=== PATIENT | female | born 1965 | race Caucasian/White ===

== ENCOUNTER 2019-12-22 12:41 | Outpatient (REF) | payer OTHER, SELFPAY | END 2019-12-22 12:42 | disposition home or self-care (01) | LOC: HO.HMGCLDS 12:41 | PROVIDERS: PCP Nurse Practitioner Family; Visit Provider Internal Medicine | DX: Z20.828 Contact with and (suspected) exposure to other viral communicable diseases (principal) | CPT/HCPCS: 87635 ==

== ENCOUNTER 2020-01-31 10:17 | Outpatient (REF) | payer OTHER, SELFPAY ==
[2020-01-31 11:29] LABS: MANUAL DIFF FLAG NO
[2020-01-31 11:38] LABS: Basophils Percent Auto 0.3 % (0-2); Eosinophils Absolute Auto 0.1 X10*3/uL (0.0-0.4); Eosinophils Percent Auto 2.7 % (0-4); Hematocrit 44.5 % (37-47); Hemoglobin 14.9 g/dl (12.0-16.0); Lymphocytes Absolute Auto 1.1 X10*3/uL (1.2-4.9); Lymphocytes Percent Auto 32.8 % (20-40); Mean Corpuscular HGB Conc 33.5 g/dl (31.0-35.0); Mean Corpuscular Hemoglobin 30.4 pg (27.0-33.0); Mean Corpuscular Volume 90.8 fL (80-98); Mean Platelet Volume 9.4 fL (9.4-12.3); Monocytes Absolute Auto 0.3 X10*3/uL (0.1-1.2); Monocytes Percent Auto 8.2 % (2-11); Neutrophils Absolute Auto 1.8 X10*3/uL (2.0-8.3); Platelet Count 308 X10*3/uL (160-400); Red Cell Distribution Width 11.9 % (11.0-16.0); White Blood Count 3.3 X10*3/uL (4.8-10.8)
[2020-01-31 12:02] LABS: Anion Gap 12 (12-20); Blood Urea Nitrogen 14 mg/dL (9-16); Calcium 9.3 mg/dL (8.4-10.2); Carbon Dioxide 28 mmol/L (22-29); Chloride 106 mmol/L (96-108); Cholesterol 202 mg/dL; Estimated Glomerular Filt Rate > 60; Glucose Fasting 92 mg/dL (60-99); HDL Cholesterol 91 mg/dL; LDL Cholesterol Calculated 101 mg/dl; Potassium 4.6 mmol/l (3.3-5.1); Sodium 141 mmol/L (135-145); Triglycerides 53 mg/dL
[2020-01-31 12:20] LABS: TSH reflex Free T4 1.15 mIU/mL (0.32-4.0)
== END 2020-01-31 10:18 | disposition home or self-care (01) ==
LOC: HO.LAB 10:17
PROVIDERS: PCP Nurse Practitioner Family; Visit Provider Nurse Practitioner Family
DX: Z00.00 Encounter for general adult medical examination without abnormal findings (principal); Z13.220 Encounter for screening for lipoid disorders; Z13.29 Encounter for screening for other suspected endocrine disorder
CPT/HCPCS: 36415; 80048; 80061; 84443; 85025

== ENCOUNTER 2020-03-02 15:29 | Outpatient (REF) | payer OTHER, SELFPAY ==
[2020-03-04 12:02] LABS: BV Int Neg Control Negative (Negative); BV Int Pos Control Positive (Positive)
[2020-03-07 03:48] LABS: HPV mRNA E6/E7 rflx Not Detected (Not Detected)
== END 2020-03-02 15:30 | disposition home or self-care (01) ==
LOC: HO.LAB 15:29
PROVIDERS: PCP Nurse Practitioner Family; Referring Provider Nurse Practitioner Family; Visit Provider Obstetrics & Gynecology
DX: Z12.4 Encounter for screening for malignant neoplasm of cervix (principal)
CPT/HCPCS: 87480; 87510; 87624; 87625; 87660; 88142

== ENCOUNTER 2020-03-12 10:18 | Outpatient (REF) | payer OTHER, SELFPAY ==
--- NOTE | 2020-03-12 10:22 | MM_ITS ---
EXAMINATION: MM SCREENING DIGITAL BREAST TOMOSYNTHESIS, BILATERAL CLINICAL INFORMATION: Screening. Asymptomatic. Prior ghk-by-rjkpb mammography currently unavailable. Radiology staff will attempt to retrieve prior outside exams to allow for comparison in an addendum report. The lifetime risk of breast cancer based on the Tyrer-Cuzick Model is 9%. COMPARISON: None. TECHNIQUE: Digital breast tomosynthesis is performed in both the craniocaudal and mediolateral oblique views along with computer-aided detection (CAD). Synthesized 2D images are generated from the tomosynthesis. FINDINGS: The breasts are heterogeneously dense, which may obscure small masses (ACR BI-RADS breast composition Category c). There are no significant masses, abnormal calcifications, or other abnormalities. The axilla and skin contours are unremarkable. MM/MM tomosynthesis screening BI IMPRESSION: No mammographic evidence of malignancy. ASSESSMENT: BI-RADS 1: Negative RECOMMENDATION: 1. Routine annual mammography screening. 2. Radiology department staff will attempt to retrieve prior outside mammography to allow for comparison in an addendum report. This patient's information was entered into a reminder system with a target due date for their next mammogram.
== END 2020-03-12 10:19 | disposition home or self-care (01) ==
LOC: HO.MAMMO 10:18
PROVIDERS: Visit Provider Obstetrics & Gynecology
DX: Z12.31 Encounter for screening mammogram for malignant neoplasm of breast (principal)
CPT/HCPCS: 77063; 77067

== ENCOUNTER 2020-10-16 08:46 | Outpatient (REF) | payer OTHER, SELFPAY ==
[2020-10-16 10:28] LABS: MANUAL DIFF FLAG NO
[2020-10-16 10:42] LABS: Basophils Percent Auto 0.5 % (0-2); Eosinophils Absolute Auto 0.1 X10*3/uL (0.0-0.4); Eosinophils Percent Auto 2.5 % (0-4); Hematocrit 42.5 % (37-47); Hemoglobin 14.5 g/dl (12.0-16.0); Imm Gran Abs Auto 0.01 X10*3/uL (0.00-0.03); Imm Gran Pct Auto 0.3 % (0.0-0.4); Lymphocytes Absolute Auto 1.3 X10*3/uL (1.2-4.9); Lymphocytes Percent Auto 32.2 % (20-40); Mean Corpuscular HGB Conc 34.1 g/dl (31.0-35.0); Mean Corpuscular Hemoglobin 31.1 pg (27.0-33.0); Mean Corpuscular Volume 91.2 fL (80-98); Mean Platelet Volume 9.4 fL (9.4-12.3); Monocytes Absolute Auto 0.4 X10*3/uL (0.1-1.2); Monocytes Percent Auto 9.4 % (2-11); Neutrophils Absolute Auto 2.2 X10*3/uL (2.0-8.3); Neutrophils Percent Auto 55.1 % (45-73); Platelet Count 304 X10*3/uL (160-400); Red Blood Count 4.66 X10*6/uL (4.20-5.50); Red Cell Distribution Width 12.3 % (11.0-16.0)
[2020-10-16 10:48] LABS: Alanine Aminotransferase 18 U/L (0-31); Albumin Level 4.4 g/dL (3.5-5.0); Alkaline Phosphatase 79 U/L (39-117); Anion Gap 13 (12-20); Aspartate Amino Transferase 23 U/L (5-31); Bilirubin Total 0.4 mg/dL (0.0-1.0); Blood Urea Nitrogen 14 mg/dL (9-16); Calcium 9.5 mg/dL (8.4-10.2); Carbon Dioxide 25 mmol/L (22-29); Chloride 107 mmol/L (96-108); Cholesterol 177 mg/dL; Estimated Glomerular Filt Rate > 60; Glucose Fasting 102 mg/dL (60-99); HDL Cholesterol 74 mg/dL; LDL Cholesterol Calculated 93 mg/dl; Potassium 4.7 mmol/L (3.3-5.1); Sodium 140 mmol/L (135-145); Total Protein 6.6 g/dL (6.5-8.0); Triglycerides 50 mg/dL
== END 2020-10-16 08:47 | disposition home or self-care (01) ==
LOC: HO.10HDL 08:46
PROVIDERS: Visit Provider Nurse Practitioner Family
DX: E78.00 Pure hypercholesterolemia, unspecified (principal)
CPT/HCPCS: 36415; 80053; 80061; 85025

== ENCOUNTER 2021-02-28 12:53 | Outpatient (REF) | payer OTHER, SELFPAY ==
[2021-02-28 13:51] LABS: MANUAL DIFF FLAG NO
[2021-02-28 13:59] LABS: Basophils Percent Auto 0.8 % (0-2); Eosinophils Absolute Auto 0.1 X10*3/uL (0.0-0.4); Eosinophils Percent Auto 2.3 % (0-4); Hematocrit 41.5 % (37.0-47.0); Hemoglobin 14.2 g/dl (12.0-16.0); Imm Gran Abs Auto 0.02 X10*3/uL (0.00-0.03); Imm Gran Pct Auto 0.5 % (0.0-0.4); Lymphocytes Absolute Auto 1.4 X10*3/uL (1.2-4.9); Lymphocytes Percent Auto 34.9 % (20-40); Mean Corpuscular HGB Conc 34.2 g/dl (31.0-35.0); Mean Corpuscular Hemoglobin 31.2 pg (27.0-33.0); Mean Corpuscular Volume 91.2 fL (80.0-98.0); Mean Platelet Volume 9.1 fL (9.4-12.3); Monocytes Absolute Auto 0.4 X10*3/uL (0.1-1.2); Neutrophils Absolute Auto 2.1 x10*3/uL (2.0-8.3); Neutrophils Percent Auto 52.5 % (45-73); Platelet Count 345 X10*3/uL (160-400); Red Blood Count 4.55 X10*6/uL (4.20-5.50); Red Cell Distribution Width 12.1 % (11.0-16.0)
[2021-02-28 14:06] LABS: Appearance Urine CLEAR; Color Urine YELLOW; Glucose Urine UA NEG (NEG); Leukocyte Esterase Urine NEG (NEG); Nitrite Urine NEG (NEG); Specific Gravity - Urine 1.015 (1.005-1.025); Urine Blood NEG (NEG); Urine Ketones NEG (NEG); Urine Protein NEG (NEG-TRACE)
[2021-02-28 14:18] LABS: Alanine Aminotransferase 51 U/L (0-31); Albumin Level 4.6 g/dL (3.5-5.0); Alkaline Phosphatase 85 U/L (39-117); Anion Gap 11 (12-20); Aspartate Amino Transferase 39 U/L (5-31); Bilirubin Total 0.5 mg/dL (0.0-1.0); Blood Urea Nitrogen 13 mg/dL (9-16); Calcium 9.7 mg/dL (8.4-10.2); Carbon Dioxide 28 mmol/L (22-29); Chloride 106 mmol/L (96-108); Cholesterol 205 mg/dL; Estimated Glomerular Filt Rate > 60; Glucose Fasting 92 mg/dL (60-99); HDL Cholesterol 81 mg/dL; LDL Cholesterol Calculated 114 mg/dl; Potassium 4.3 mmol/L (3.3-5.1); Sodium 141 mmol/L (135-145); Total Protein 7.2 g/dL (6.5-8.0); Triglycerides 54 mg/dL
[2021-02-28 14:40] LABS: TSH reflex Free T4 1.23 uIU/mL (0.32-4.0); Vitamin D 25-OH Total 32.5 ng/mL (>30)
== END 2021-02-28 12:54 | disposition home or self-care (01) ==
LOC: HO.10HDL 12:53
PROVIDERS: Visit Provider Internal Medicine
DX: Z00.00 Encounter for general adult medical examination without abnormal findings (principal); E55.9 Vitamin D deficiency, unspecified
CPT/HCPCS: 36415; 80053; 80061; 81003; 82306; 84443; 85025

== ENCOUNTER → 2021-03-04 14:33 | Outpatient (BNVA) | payer OTHER, SELFPAY | PROVIDERS: Visit Provider Advanced Practice Midwife ==

== ENCOUNTER 2021-04-19 13:01 | Outpatient (REF) | payer OTHER, SELFPAY ==
--- NOTE | ~2021-04-19 | MM_ITS ---
EXAMINATION: MM SCREENING DIGITAL BREAST TOMOSYNTHESIS, BILATERAL CLINICAL INFORMATION: Screening. Asymptomatic. The lifetime risk of breast cancer based on the Tyrer-Cuzick Model is 8%. COMPARISON: Mammography: 03/12/2020; outside mammography 01/07/2019, 01/04/2018, 01/02/2017 and outside bilateral screening breast ultrasound 01/07/2019 ([place], [place]). TECHNIQUE: Digital breast tomosynthesis is performed in both the craniocaudal and mediolateral oblique views along with computer-aided detection (CAD). Synthesized 2D images are generated from the tomosynthesis. FINDINGS: The breasts are heterogeneously dense, which may obscure small masses (ACR BI-RADS breast composition Category c). There are no significant masses, abnormal calcifications, or other abnormalities. Breast tissue composition borders on average fibroglandular. Parenchymal pattern is similar to prior studies. No developing density. Incidental intramammary node again seen bilateral posterior outer quadrants. MM/MM tomosynthesis screening BI IMPRESSION: No mammographic evidence of malignancy. ASSESSMENT: BI-RADS 2: Benign RECOMMENDATION: Routine annual mammography screening. This patient's information was entered into a reminder system with a target due date for their next mammogram.
--- NOTE | ~2021-04-19 | MM_ITS ---
EXAMINATION: BONE DENSITOMETRY CLINICAL INDICATION: Asymptomatic menopausal state. COMPARISON: This is the patient's baseline examination. TECHNIQUE: Using a [employer] DXA System (software version: 13.1) manufactured by [employer], dual-energy x-ray absorptiometry was performed of the lumbar spine and left hip. The images are of good technical quality. Summary results are attached. FINDINGS: AP SPINE L1-L4: BMD 0.997 g/cm2, Z-score -0.6, T-score -1.5, osteopenia. LEFT FEMUR, NECK: BMD 0.643 g/cm2, Z-score -1.7, T-score -2.8, osteoporosis. LEFT FEMUR, TOTAL: BMD 0.765 g/cm2, Z-score -1.2, T-score -1.9, osteopenia. IDENTIFIED RISK FACTORS: Low calcium intake, menopause. HISTORY OF FRACTURE: None listed. MEDICATIONS: Vitamin D. MM/XR DEXA axial skeleton IMPRESSION: 1. DIAGNOSIS: Osteoporosis based on the lowest T-score value of -2.8 in the femoral neck applying World Health Organization criteria. 2. 10-YEAR FRACTURE RISK PREDICTION, FRAX: Major osteoporotic fracture (clinical spine, forearm, hip or shoulder) 11.6%. Hip fracture 2.9%. 3. Treatment Recommendations: NOF guidelines recommend consideration for treatment in postmenopausal women and men age 50 and older presenting with the following: -A hip or vertebral (clinical or morphometric) fracture. -T-score less than or equal to -2.5 at the femoral neck or spine after appropriate evaluation to exclude secondary causes. -Low bone mass at the hip or spine and a 10-year fracture probability by FRAX of greater than or equal to 3% for hip fracture or greater than or equal to 20% for major osteoporotic fracture based on the [place] adapted WHO algorithm. 4. Other Recommendations: All treatment decisions require clinical judgment and consideration of individual patient factors, including patient preferences, comorbidities, previous drug use, risk factors not captured in the FRAX model (e.g. frailty, falls, vitamin D deficiency, increased bone turnover, interval significant decline in bone density) and possible under or overestimation of fracture risk by FRAX. Additional medical evaluation for secondary cause of low bone mineral density may be appropriate. FUTURE SCAN RECOMMENDATION: People with diagnosed cases of osteoporosis or at high risk for fracture should have regular bone mineral density tests. For patients eligible for Medicare, routine testing is allowed once every 2 years. The testing frequency can be increased to one year for patients who have rapidly progressing disease, those who are receiving or discontinuing medical therapy to restore bone mass, or have additional risk factors.
== END 2021-04-19 13:02 | disposition home or self-care (01) ==
LOC: HO.MAMMO 13:01
PROVIDERS: PCP Internal Medicine; Visit Provider Internal Medicine
DX: Z12.31 Encounter for screening mammogram for malignant neoplasm of breast (principal); Z13.820 Encounter for screening for osteoporosis; E83.51 Hypocalcemia; Z78.0 Asymptomatic menopausal state; Z79.899 Other long term (current) drug therapy
CPT/HCPCS: 77063; 77067; 77080

== ENCOUNTER 2021-10-31 11:19 | Outpatient (REF) | payer OTHER, SELFPAY ==
[2021-10-31 13:34] LABS: Phosphorus 3.9 mg/dL (2.7-4.5)
== END 2021-10-31 11:20 | disposition home or self-care (01) ==
LOC: HO.10HDL 11:19
PROVIDERS: Visit Provider Internal Medicine Endocrinology, Diabetes & Metabolism
DX: M81.0 Age-related osteoporosis without current pathological fracture (principal)
CPT/HCPCS: 36415; 84100; 99202

== ENCOUNTER 2021-11-13 10:01 | Outpatient (REF) | payer OTHER, SELFPAY ==
[2021-11-13 12:06] LABS: Creatinine, mg/dL 45.09
[2021-11-13 13:00] LABS: Creatinine, 24Hr Urine 1.2 G/Day (1.0-2.0); Total Volume 24 Hour Urine 2650 mL
[2021-11-14 17:52] LABS: Calcium, 24 Hr Urine 95 mg/24 h; Calcium/Creatinine Ratio 75 mg/g creat (30-275); Creatinine 24Hr Urine 1.27 g/24 h (0.50-2.15)
== END 2021-11-13 10:02 | disposition home or self-care (01) ==
LOC: HO.10HDLNP 10:01
PROVIDERS: Visit Provider Internal Medicine Endocrinology, Diabetes & Metabolism
DX: M81.0 Age-related osteoporosis without current pathological fracture (principal)
CPT/HCPCS: 82340; 82570

== ENCOUNTER 2022-03-06 09:39 | Outpatient (REF) | payer OTHER, SELFPAY ==
[2022-03-06 14:15] LABS: CT PCR NOT DETECTED (Not Detect.); NG PCR NOT DETECTED (Not Detect.)
== END 2022-03-06 09:40 | disposition home or self-care (01) ==
LOC: HO.LNP 09:39
PROVIDERS: PCP Internal Medicine; Visit Provider Advanced Practice Midwife
DX: Z11.3 Encounter for screening for infections with a predominantly sexual mode of transmission (principal); M81.0 Age-related osteoporosis without current pathological fracture
CPT/HCPCS: 87491; 87591

== ENCOUNTER 2022-03-19 10:28 | Outpatient (REF) | payer OTHER, SELFPAY ==
[2022-03-19 14:18] LABS: MANUAL DIFF FLAG NO
[2022-03-19 14:19] LABS: Appearance Urine Clear; Color Urine Yellow; Glucose Urine UA Negative (Negative); Leukocyte Esterase Urine Negative (Negative); Nitrite Urine Negative (Negative); Urine Blood Negative (Negative); Urine Ketones Negative (Negative); Urine Protein Negative (Neg-Trace)
[2022-03-19 14:21] LABS: Basophils Percent Auto 0.6 % (0-2); Eosinophils Absolute Auto 0.1 X10*3/uL (0.0-0.4); Hematocrit 43.5 % (37.0-47.0); Hemoglobin 14.6 g/dl (12.0-16.0); Lymphocytes Absolute Auto 1.1 X10*3/uL (1.2-4.9); Lymphocytes Percent Auto 30.5 % (20-40); Mean Corpuscular HGB Conc 33.6 g/dl (31.0-35.0); Mean Corpuscular Hemoglobin 30.5 pg (27.0-33.0); Mean Corpuscular Volume 90.8 fL (80.0-98.0); Mean Platelet Volume 9.7 fL (9.4-12.3); Monocytes Absolute Auto 0.3 X10*3/uL (0.1-1.2); Monocytes Percent Auto 7.2 % (2-11); Neutrophils Absolute Auto 2.1 x10*3/uL (2.0-8.3); Neutrophils Percent Auto 59.7 % (45-73); Platelet Count 295 X10*3/uL (160-400); Red Blood Count 4.79 X10*6/uL (4.20-5.50); Red Cell Distribution Width 11.9 % (11.0-16.0); White Blood Count 3.5 X10*3/uL (4.8-10.8)
[2022-03-19 14:30] LABS: Estimated Average Glucose 105 mg/dL; Hemoglobin A1c % 5.3 %
[2022-03-19 14:42] LABS: Alanine Aminotransferase 12 U/L (0-31); Albumin Level 4.4 g/dL (3.5-5.0); Alkaline Phosphatase 70 U/L (39-117); Anion Gap 11 (12-20); Aspartate Amino Transferase 15 U/L (5-31); Bilirubin Total 0.6 mg/dL (0.0-1.0); Blood Urea Nitrogen 18 mg/dL (9-16); Calcium 9.7 mg/dL (8.4-10.2); Carbon Dioxide 28 mmol/L (22-29); Chloride 107 mmol/L (96-108); Cholesterol 184 mg/dL; Estimated Glomerular Filt Rate > 60; Glucose Fasting 98 mg/dL (60-99); HDL Cholesterol 75 mg/dL; LDL Cholesterol Calculated 99 mg/dl; Potassium 4.8 mmol/L (3.3-5.1); Sodium 141 mmol/L (135-145); Total Protein 6.5 g/dL (6.5-8.0); Triglycerides 53 mg/dL
[2022-03-19 14:55] LABS: Syphilis Screen Nonreactive (Nonreactive)
[2022-03-19 15:02] LABS: TSH reflex Free T4 1.25 uIU/mL (0.32-4.0); Vitamin D 25-OH Total 34.3 ng/mL (>30)
[2022-03-21 09:09] LABS: HBc Num1 0.05 S/CO (0.00-0.79); HIV AB/AG Nonreactive (Nonreactive); HIV Num 1 0.05 S/CO (0.00-0.99); Hepatitis B Core Antibody Nonreactive (Nonreactive); ~HepC Num1 0.06 S/CO (0.00-0.79); ~Hepatitis C Antibody Nonreactive (Nonreactive)
== END 2022-03-19 10:29 | disposition home or self-care (01) ==
LOC: HO.10HDL 10:28
PROVIDERS: Absent Provider Advanced Practice Midwife; Visit Provider Internal Medicine
DX: Z00.00 Encounter for general adult medical examination without abnormal findings (principal); Z11.4 Encounter for screening for human immunodeficiency virus [HIV]; R30.0 Dysuria; E55.9 Vitamin D deficiency, unspecified; E78.00 Pure hypercholesterolemia, unspecified; J30.9 Allergic rhinitis, unspecified; R79.89 Other specified abnormal findings of blood chemistry; Z20.2 Contact with and (suspected) exposure to infections with a predominantly sexual mode of transmission
CPT/HCPCS: 36415; 80053; 80061; 81003; 82306; 83036; 84443; 85025; 86704; 86780; 86803; 87389

== ENCOUNTER 2022-04-24 12:56 | Outpatient (REF) | payer OTHER, SELFPAY ==
--- NOTE | ~2022-04-24 | MM_ITS ---
EXAMINATION: MM SCREENING DIGITAL BREAST TOMOSYNTHESIS, BILATERAL CLINICAL INFORMATION: Screening. Asymptomatic. The lifetime risk of breast cancer based on the Tyrer-Cuzick Model is 7.4%. COMPARISON: Mammography: April 19, 2021 dating back to studies of January 02, 2017 TECHNIQUE: Digital breast tomosynthesis is performed in both the craniocaudal and mediolateral oblique views along with computer-aided detection (CAD). Synthesized 2D images are generated from the tomosynthesis. FINDINGS: There are scattered areas of fibroglandular density (ACR BI-RADS breast composition Category b). There are no significant masses, abnormal calcifications, or other abnormalities. MM/MM tomosynthesis screening BI IMPRESSION: No significant changes from prior exam. ASSESSMENT: BI-RADS 1: Negative RECOMMENDATION: Routine annual mammography screening. This patient's information was entered into a reminder system with a target due date for their next mammogram.
== END 2022-04-24 12:57 | disposition home or self-care (01) ==
LOC: HO.MAMMO 12:56
PROVIDERS: PCP Internal Medicine; Visit Provider Internal Medicine
DX: Z12.31 Encounter for screening mammogram for malignant neoplasm of breast (principal)
CPT/HCPCS: 77063; 77067

== ENCOUNTER 2022-10-30 10:06 | Outpatient (AMB) | payer OTHER, SELFPAY ==
[2022-10-30 10:14] VITALS: BP 106/60; PULSE 61; BMI 24.2
--- NOTE | 2022-10-30 10:14 | A.OFFVIS_ITS ---
Intake Vital Signs 10/30/22 10:14 Height 5 ft 2 in Weight 132 lb 0.91 oz BMI 24.2 BP 106/60 Blood Pressure Location Lt brachial Position Sitting Pulse 61 Pulse Source Pulse Oximeter Intake Visit Reasons: f/u osteoporosis Intake Note: Patient present for Osteoporosis follow up visit. Crime Data Specialist Required: No Accompanied by: Self / Same As Patient Allergies sulfabenzamide Allergy (Intermediate, Verified 10/30/22 10:20) rash azithromycin Allergy (Mild, Verified 10/30/22 10:20) Unknown codeine Adverse Reaction (Intermediate, Verified 10/30/22 10:20) itching Medication List - Last Reconciled 10/30/22 by Ramon Tejada MD cholecalciferol (vitamin D3) 50 mcg PO DAILY phytonadione (vit K1) (bulk) 100% (Vitamin K1) ea miscellaneous HPI HPI Comments History of Present Illness Details 56 YO Female with PMHx vitamin D deficency is seen in consultation at the request of PCP for Osteoporosis. First diagnosed in few yrs ago with osteopenia . Not Received treatment in the past. No history of pathologic fracture or ONJ. Has several servings of dietary calcium per day . Not Takes Calcium supplement . Takes 2000 IU of Vitamin D daily. Denies ever using PPI, anticoagulant, antiepileptic or glucocorticoid medication. Does weight bearing exercise 2-3 days per week in the form of weight bearing light wts . 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 Have hot flashes . No breast cancer in family Denies history of Kidney stones: Has family history of Osteoporosis or hip fracture in maternal grand mother . UTD on dental cleanings and sees dentist every 6 months. No planned upcoming dental work or extractions. DXA dated 04/19/21: FINDINGS: AP SPINE L1-L4: BMD 0.997 g/cm2, Z-score -0.6, T-score -1.5, osteopenia. LEFT FEMUR, NECK: BMD 0.643 g/cm2, Z-score -1.7, T-score -2.8, osteoporosis. LEFT FEMUR, TOTAL: BMD 0.765 g/cm2, Z-score -1.2, T-score -1.9, osteopenia. Labs: Secondary workup was negative. Saw Smeller who did not want to start as to replacement [facility] Medical History Elevated high-density lipoprotein History of atypical skin mole Osteoporosis Overweight (BMI 25.0-29.9) Trigger finger Vitamin D deficiency Surgical History History of dilation and curettage History of knee surgery Family History Father Skin cancer Prostate cancer Mother Lump in female breast Maternal Grandmother Ovarian cancer Other Substance abuse Social History Housing: Apartment Alcohol intake: never Patient Tobacco Use Status: Never used Tobacco e-Cigarette/Vaping Use: Never Used Second Hand Smoke Exposure: Yes Substance Use Type: Marijuana service: No Current occupational status: unemployed Gender identity: Female Cognitive needs: No Hearing needs: No Vision needs: Yes Female Reproductive History Menstrual Age of Menarche: 11 Physical Exam Vital Signs: BMI result Body Mass Index 24.2 Assessment & Plan Assessment & Plan (1) Osteoporosis: Code(s): M81.0 - Age-related osteoporosis without current pathological fracture Qualifiers: Osteoporosis type: age-related Presence of current pathological fracture: without current pathological fracture Qualified Code(s): M81.0 - Age- related osteoporosis without current pathological fracture Plan: This is a 56-year-old white female with a history of osteoporosis and vitamin-D deficiency. Vitamin-D appears to be replete. Secondary workup is negative The plan is to continue the calcium, vitamin-D and weight-bearing exercise. Will repeat DEXA bone density in 6 months. I did send a for 2nd opinion to reproductive endocrinology at [facility] to see if transdermal estrogen is an option. I am reluctant to use a bisphosphonate in the patient of her age with minimal amount of osteoporosis at this point and no fracture history Orders: Orders XR DEXA axial skeleton 6 Months M81.0 - Age-related osteoporosis without current pathological fracture Referrals Reproductive Endocrinology M81.0 - Age-related osteoporosis without current pathological fracture Coding Level of Care Code Est Pt Level 3 (14392) Diagnoses Osteoporosis M81.0 Osteoporosis type: age-related Presence of current pathological fracture: without current pathological fracture
== END 2022-10-30 10:44 | disposition home or self-care (01) ==
PROVIDERS: PCP Internal Medicine; Visit Provider Internal Medicine Endocrinology, Diabetes & Metabolism
DX: M81.0 Age-related osteoporosis without current pathological fracture (principal)
CPT/HCPCS: 99213

== ENCOUNTER → 2022-10-30 10:06 | Outpatient (BNVA) | payer OTHER, SELFPAY | PROVIDERS: Visit Provider Internal Medicine Endocrinology, Diabetes & Metabolism | DX: M81.0 Age-related osteoporosis without current pathological fracture (principal) | CPT/HCPCS: 99212 ==

== ENCOUNTER 2023-03-13 09:12 | Outpatient (AMB) | payer OTHER, SELFPAY ==
--- NOTE | 2023-03-13 09:16 | MHC.OFFVIS ---
Intake Vital Signs 03/13/23 09:20 Height 5 ft 2 in Weight 132 lb BMI 24.1 BP 106/62 Intake Visit Reasons: Annual Intake Note: no concerns Farm Adviser Required: No Information Interpreted: non-clinical & clinical Phonograph Needle Tip Maker: Phonograph Needle Tip Maker Present (Xiomara LACKEY) Accompanied by: Self / Same As Patient Allergies sulfabenzamide Allergy (Intermediate, Verified 03/13/23 09:27) rash azithromycin Allergy (Mild, Verified 03/13/23 09:27) Unknown codeine Adverse Reaction (Intermediate, Verified 03/13/23 09:27) itching Post menopausal: Yes HPI HPI Comments History of Present Illness Details She is a 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 She is doing well with no concerns. Attempting to eat a healthy diet with calcium and vitamin D and stays active with exercise. Currently not sexually active. Denies any vaginal dryness or irritation. Last pap smear; 2019-n/n. Last mammogram; 2022. Colonoscopy is UTD. Denies any family history of breast or colon cancer. [facility] Medical History Osteoporosis Vitamin D deficiency Overweight (BMI 25.0-29.9) Elevated high-density lipoprotein Trigger finger History of atypical skin mole Surgical History History of dilation and curettage History of knee surgery Family History Father Skin cancer Prostate cancer Mother Lump in female breast Maternal Grandmother Ovarian cancer Other Substance abuse Social History (Updated 03/13/23 @ 09:39 by Xiomara Dennis CMA) Housing: Apartment Alcohol intake: never Patient Tobacco Use Status: Never used Tobacco e-Cigarette/Vaping Use: Never Used Second Hand Smoke Exposure: Yes Substance Use Type: Marijuana service: No Current occupational status: employed 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 Gender identity: Female Cognitive needs: No Hearing needs: No Vision needs: Yes Female Reproductive History Menstrual Age of Menarche: 11 Total pregnancies: 2 Full term: 1 Number of Living Children: 1 Ab spontaneous: 1 Date of last pap smear: 03/05/20 Date of Mammogram: 04/24/22 Review of Systems Const All systems reviewed & are unremarkable except as noted in HPI and below Reports as per HPI Eyes Reports no additional complaints ENT Reports no additional complaints Card Reports no additional complaints Resp Reports no additional complaints GI Reports as per HPI and Reports no additional complaints Reports as per HPI Musc Reports no additional complaints Skin/Breast Reports as per HPI Neuro Reports no additional complaints Psych Reports no additional complaints Endo Reports no additional complaints Shaw/Lymph Reports no additional complaints Aller/Immun Reports no additional complaints Physical Exam Vital Signs: Last Vital Signs BP 106/62 03/13/23 09:20 BMI result Body Mass Index 24.1 Const General: cooperative, healthy appearing, no acute distress, well developed and alert Orientation/consciousness: patient oriented x3 HEENT Head: Yes normal to inspection Eyes General: appearance normal, both eyes and all related structures Neck Neck: Yes normal visual inspection Thyroid: Thyroid normal Chest Chest palpation & inspection: normal inspection of the chest and other (no puckering, dimpling, peau de orange, retraction, discharge, masses) Breast/axilla inspection: normal inspection of the breasts Breast/axilla palpation: normal palpation of the breasts Resp Effort & Inspection: normal respiratory effort GI Inspection: Yes normal to inspection Palpation (GI): Soft to palpation Rectal Exam - Female: deferred General: Yes bladder normal to palpation External Female Exam: normal external appearance and normal appearance of the urethra Speculum Exam - Vagina: normal appearance of the vagina, normal palpation, normal vaginal discharge and vagina atrophic Speculum Exam - Cervix: normal appearance of the cervix and normal palpation Bimanual exam- vagina & uterus: normal bimanual exam, normal palpation, uterine size normal, bladder normal to palpation, normal palpation and non-tender Bimanual Exam- Adnexa, other: no masses Skin General skin exam: no rashes or lesions noted Rashes: no rashes Neuro General: patient oriented x3 Cognition (Neuro): normal cognition Extrem General: Yes normal to inspection Psych Attitude: cooperative Thought process: Normal thought process present Assessment & Plan Assessment & Plan (1) Encounter for well woman exam with routine gynecological exam: Code(s): Z01.419 - Encounter for gynecological examination (general) (routine) without abnormal findings Plan Discussed: Current recommendations for pap smears per ASCCP guidelines. Breast awareness, periodic self breast exams and yearly mammogram. Maintain a healthy lifestyle, well balanced diet including Calcium 1,200 mg and Vitamin D 600 IU daily, and routine exercise. Use of condoms for STI if indicated. Contact the office with any postmenopausal bleeding. All of her questions and concerns were addressed to the best of my ability. RTO in 1 year for annual policy change clerk exam. This note is constructed using voice recognition software. While every effort has been made to ensure accuracy, record librarian errors may have been included. Coding Level of Care Code Est Pt Prev Care 40-64y(99311) Diagnoses Encounter for well woman exam with routine gynecological exam Z01.419
[2023-03-13 09:20] VITALS: BP 106/62; BMI 24.1
== END 2023-03-13 10:25 | disposition home or self-care (01) ==
LOC: HO.HWS 09:12
PROVIDERS: PCP Internal Medicine; Visit Provider Advanced Practice Midwife
DX: Z01.419 Encounter for gynecological examination (general) (routine) without abnormal findings (principal)
CPT/HCPCS: 99396

== ENCOUNTER → 2023-03-13 09:12 | Outpatient (BNVA) | payer OTHER, SELFPAY | PROVIDERS: PCP Internal Medicine; Visit Provider Advanced Practice Midwife | DX: Z01.419 Encounter for gynecological examination (general) (routine) without abnormal findings (principal) | CPT/HCPCS: 99396 ==

== ENCOUNTER 2023-04-15 16:52 | Outpatient (AMB) | payer OTHER, SELFPAY ==
[2023-04-15 16:55] VITALS: BP 112/82; PULSE 86; O2SAT 98; BMI 24.4
--- NOTE | 2023-04-15 16:55 | A.OFFPC_ITS ---
Vital Signs 04/15/23 16:55 Height 5 ft 2 in Weight 133 lb 6 oz BMI 24.4 BP 112/82 Blood Pressure Location Lt brachial Position Sitting Pulse 86 Pulse Source Pulse Oximeter Pulse Oximetry (%) 98 Oxygen Delivery Method Room Air Intake Visit Reasons: painful joints on toes, possible bunion Linderman Machine Operator Required: No Accompanied by: Self / Same As Patient Allergies sulfabenzamide Allergy (Intermediate, Verified 04/15/23 17:17) rash azithromycin Allergy (Mild, Verified 04/15/23 17:17) Unknown codeine Adverse Reaction (Intermediate, Verified 04/15/23 17:17) itching Medication List - Last Reconciled 04/15/23 by Alfonso Osuna MD cholecalciferol (vitamin D3) 50 mcg PO DAILY naproxen 500 mg PO BID PRN phytonadione (vit K1) (bulk) 100% (Vitamin K1) ea miscellaneous Tobacco use date assessed: 04/15/23 Dental Screening Dental Screen Date: 04/15/23 Did you have a dental visit in the last 12 months?: Yes Did you have a dental problem in the last 6 months where you did not have access to dental care?: No Was dental information given to patient?: Patient has dentist HPI painful joints on toes, possible bunion HPI Details Patient comes in today for further evaluation of painful swelling at the base of both of her big toes, which she states have been present for a couple of weeks now Patient denies any recent injury or trauma to her feet or toes No other acute complaints or symptoms are noted at present [facility] Medical History Osteoporosis Vitamin D deficiency Overweight (BMI 25.0-29.9) Elevated high-density lipoprotein Trigger finger History of atypical skin mole Surgical History History of dilation and curettage History of knee surgery Family History Father Skin cancer Prostate cancer Mother Lump in female breast Maternal Grandmother Ovarian cancer Other Substance abuse Social History Housing: Apartment Alcohol intake: never Patient Tobacco Use Status: Never used Tobacco e-Cigarette/Vaping Use: Never Used Second Hand Smoke Exposure: Yes Substance Use Type: Marijuana service: No Current occupational status: employed 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 1. Little interest or pleasure in doing things: not at all 2. Feeling down, depressed, or hopeless: not at all 3. Trouble falling or staying asleep, or sleeping too much: not at all 4. Feeling tired or having little energy: not at all 5. Poor appetite or overeating: not at all 6. Feeling bad about yourself - or that you are a failure or have let yourself or your family down: not at all 7. Trouble concentrating on things, such as reading the newspaper or watching television: not at all 8. Moving or speaking so slowly that other people could have noticed. Or the opposite - being so fidgety or restless that you have been moving around a lot more than usual: not at all 9. Thoughts that you would be better off or of hurting yourself in some way: not at all Total score: 0 Depression Screening Interpretation: Negative Depression Screening Done: Yes 43436 - PHQ-9 Billing: Yes Source: Developed by Drs. Ramon Bazan, Danielle Steele, Venkata Granados and colleagues, with an educational moon from [employer]. Thrive Questionnaire Date Thrive assessed: 04/15/23 I am a: Patient What is your living situation today?: I have a steady place to live Within the past 12 months, did the food you bought not last and you didn't have the money to get more?: Never true Within the past 12 months, did you worry whether your food would run out before you got money to buy more?: Never true Do you have trouble paying for medicines?: No Do you have trouble getting transportation to medical appointments?: No Do you have trouble paying your heating and electricity bill?: No Do you have trouble taking care of your child, family member or friend?: No Do you have trouble with day-to-day activities such as bathing, preparing meals, shopping, managing finances, etc.?: No Are you currently unemployed and looking for a job?: No Are you interested in more education?: No Please select the resources that you would like help with: None Currently or been in a relationship where the following occur: no concerns reported THRIVE Score: 0 AUDIT C Alcohol Use Questionnaire (AUDIT-C) 1. How often do you have a drink containing alcohol?: Never 3. How often do you have six or more drinks on one occasion?: Never Total Score: 0 Score Reviewed/Action Taken: Yes ROGER-7 AMB Questionnaire ROGER-7 Date ROGER - 7 assessed: 04/15/23 Feeling nervous, anxious, or on edge: 0 = Not at all Not being able to stop or control worryin = Not at all Worrying too much about different things: 0 = Not at all Trouble relaxin = Not at all Being so restless that it is hard to sit still: 0 = Not at all Becoming easily annoyed or irritable: 0 = Not at all Feeling afraid as if something awful might happen: 0 = Not at all Total ROGER-7 score (0-4 normal; 5-9 mild; 10-14 moderate; 15-21 severe): 0 Source: Developed by Drs. Ramon Bazan, Danielle Steele, Venkata Granados and colleagues, with an educational moon from [employer]. Review of Systems Const Denies fatigue, Denies fever(s) and Denies headache(s) ENT Denies dysphagia, Denies dizziness, Denies headache(s), Denies neck pain and Denies sore throat Card Denies chest pain, Denies palpitations and Denies dyspnea Resp Denies cough and Denies dyspnea GI Denies abdominal pain, Denies constipation, Denies dysphagia, Denies diarrhea, Denies nausea and Denies vomiting Musc Details: (+) painful nodules/swelling at the base of her big toes on both feet Denies neck pain Neuro Denies dizziness and Denies headache(s) Endo Denies fatigue and Denies palpitations Physical exam (Primary Care) Vital Signs: Last Vital Signs Pulse 86 04/15/23 16:55 BP 112/82 04/15/23 16:55 Pulse Ox 98 04/15/23 16:55 Oxygen Delivery Method Room Air 04/15/23 16:55 BMI result Body Mass Index 24.4 Tobacco/Smoking Status: Tobacco use Status Tobacco use date assessed 04/15/23 04/15/23 16:56 Patient Tobacco Use Status Never used Tobacco 04/15/23 16:56 e-Cigarette/Vaping Use Never Used 04/15/23 16:56 PHQ-9: PHQ-9 Score PHQ-9: Total score 0 04/15/23 23:55 Depression Screening Interpretation: Negative Thrive Assessment: Date of Thrive Assessment Date Thrive assessed 04/15/23 04/15/23 16:56 Currently or been in a relationship where the following occur: no concerns reported Const General: no acute distress and alert Resp Auscultation: clear to auscultation bilaterally, no rales and no wheezes Cardio Rate: regular rate Rhythm: regular rhythm Heart sounds: no murmurs GI Palpation (GI): Soft to palpation and nontender Extrem Other: (+) mild tenderness over the base of the right big toe, which appears prominent/enlarged; (+) similar prominence / enlargement noted over the base of the left big toe, with (+) small, spongy nodule or cyst-like lesion on the top General: Yes no clubbing, cyanosis or edema Assessment and Plan Assessment & Plan (1) Swelling of toe of both feet: Code(s): M79.89 - Other specified soft tissue disorders Plan: Discussed with patient that the slightly painful swelling over the base of her big toes are most likely bunions, and the cyst or nodular lesion on the base of her left big toe feels like a small cutaneous cyst Will send her for x-rays of both feet for further evaluation and have advised her to try to get a copy of her x-rays to bring with her to her podiatry appointment for the director strategic planning to view as well Will refer her to podiatry for further evaluation and management Plan To return as scheduled in May 2023 for her annual physical examination Orders: Orders XR toe LT min 2V 04/15/23 M79.89 - Other specified soft tissue disorders XR toe RT min 2V 04/15/23 M79.89 - Other specified soft tissue disorders Referrals Podiatry Referral M79.89 - Other specified soft tissue disorders Coding Level of Care Code Est Pt Level 3 (97941) Diagnoses Swelling of toe of both feet M79.89
== END 2023-04-15 17:24 | disposition home or self-care (01) ==
PROVIDERS: PCP Internal Medicine; Visit Provider Internal Medicine
DX: M79.89 Other specified soft tissue disorders (principal); E55.9 Vitamin D deficiency, unspecified
CPT/HCPCS: 99213

== ENCOUNTER 2023-04-16 11:43 | Outpatient (REF) | payer OTHER, SELFPAY ==
--- NOTE | ~2023-04-16 | XR_ITS ---
EXAMINATION: XR toe LT min 2V, XR toe RT min 2V CLINICAL INFORMATION: Reason for Exam M79.89 - Other specified soft tissue disorders COMPARISON: None. TECHNIQUE: Three views of the bilateral great toes FINDINGS: * No acute fracture or dislocation. * Joint spaces are maintained without significant degenerative change. * No soft tissue abnormality. XR/XR toe RT min 2V IMPRESSION: No acute fracture or dislocation.
--- NOTE | ~2023-04-16 | XR_ITS ---
EXAMINATION: XR toe LT min 2V, XR toe RT min 2V CLINICAL INFORMATION: Reason for Exam M79.89 - Other specified soft tissue disorders COMPARISON: None. TECHNIQUE: Three views of the bilateral great toes FINDINGS: * No acute fracture or dislocation. * Joint spaces are maintained without significant degenerative change. * No soft tissue abnormality. XR/XR toe LT min 2V IMPRESSION: No acute fracture or dislocation.
== END 2023-04-16 11:44 | disposition home or self-care (01) ==
LOC: HO.XRAY 11:43
PROVIDERS: PCP Internal Medicine; Visit Provider Internal Medicine
DX: M79.89 Other specified soft tissue disorders (principal)
CPT/HCPCS: 73660

== ENCOUNTER 2023-05-01 13:28 | Outpatient (REF) | payer OTHER, SELFPAY ==
--- NOTE | ~2023-05-01 | MM_ITS ---
EXAMINATION: BONE DENSITOMETRY CLINICAL INDICATION: Age-related osteoporosis without current pathological fracture. COMPARISON: Baseline BD dated 04/19/2021. TECHNIQUE: Using a [employer] DXA System (software version: 13.1) manufactured by [employer], dual-energy x-ray absorptiometry was performed of the lumbar spine and left hip. The images are of good technical quality. Summary results are attached. FINDINGS: AP SPINE L1-L4: Current: BMD 0.984 g/cm2, Z-score -0.4, T-score -1.6, osteopenia, 1.3% decrease from baseline (<5% change is not significant). Baseline: BMD 0.997 g/cm2. LEFT FEMUR, NECK: Current: BMD 0.746 g/cm2, Z-score -0.8, T-score -2.1, osteopenia. Baseline: BMD 0.643 g/cm2. LEFT FEMUR, TOTAL: Current: BMD 0.871 g/cm2, Z-score -0.1, T-score -1.1, osteopenia, 13.9% increase from baseline (<5% change is not significant). Baseline: BMD 0.765 g/cm2. IDENTIFIED RISK FACTORS: Osteoporosis. Menopause. HISTORY OF FRACTURE: None listed. MEDICATIONS: Vitamin D. MM/XR DEXA axial skeleton IMPRESSION: 1. DIAGNOSIS: Osteopenia based on the lowest T-score value of -2.1 in the femoral neck applying World Health Organization criteria. 2. 10-YEAR FRACTURE RISK PREDICTION, FRAX: Major osteoporotic fracture (clinical spine, forearm, hip or shoulder) 9.1%. Hip fracture 1.3%. 3. Treatment Recommendations: NOF guidelines recommend consideration for treatment in postmenopausal women and men age 50 and older presenting with the following: -A hip or vertebral (clinical or morphometric) fracture. -T-score less than or equal to -2.5 at the femoral neck or spine after appropriate evaluation to exclude secondary causes. -Low bone mass at the hip or spine and a 10-year fracture probability by FRAX of greater than or equal to 3% for hip fracture or greater than or equal to 20% for major osteoporotic fracture based on the [place] adapted WHO algorithm. 4. Other Recommendations: All treatment decisions require clinical judgment and consideration of individual patient factors, including patient preferences, comorbidities, previous drug use, risk factors not captured in the FRAX model (e.g. frailty, falls, vitamin D deficiency, increased bone turnover, interval significant decline in bone density) and possible under or overestimation of fracture risk by FRAX. Additional medical evaluation for secondary cause of low bone mineral density may be appropriate. FUTURE SCAN RECOMMENDATION: People with diagnosed cases of osteoporosis or at high risk for fracture should have regular bone mineral density tests. For patients eligible for Medicare, routine testing is allowed once every 2 years. The testing frequency can be increased to one year for patients who have rapidly progressing disease, those who are receiving or discontinuing medical therapy to restore bone mass, or have additional risk factors.
== END 2023-05-01 13:29 | disposition home or self-care (01) ==
LOC: HO.MAMMO 13:28
PROVIDERS: PCP Internal Medicine; Visit Provider Internal Medicine Endocrinology, Diabetes & Metabolism
DX: Z12.31 Encounter for screening mammogram for malignant neoplasm of breast (principal); Z13.820 Encounter for screening for osteoporosis; Z78.0 Asymptomatic menopausal state; M81.0 Age-related osteoporosis without current pathological fracture
CPT/HCPCS: 77063; 77067; 77080

== ENCOUNTER → 2023-05-01 13:30 | Outpatient (BNV) | payer OTHER, SELFPAY | PROVIDERS: PCP Internal Medicine; Visit Provider Radiology Diagnostic Radiology | DX: Z12.31 Encounter for screening mammogram for malignant neoplasm of breast (principal) | CPT/HCPCS: 77063; 77067 ==

== ENCOUNTER 2023-05-22 16:57 | Outpatient (AMB) | payer OTHER, SELFPAY ==
--- NOTE | 2023-05-22 17:00 | A.OFFPC_ITS ---
Vital Signs 05/22/23 17:01 Height 5 ft 2 in Weight 129 lb BMI 23.6 BP 100/70 Blood Pressure Location Lt brachial Position Sitting Pulse 57 Pulse Source Pulse Oximeter Pulse Oximetry (%) 99 Oxygen Delivery Method Room Air Intake Visit Reasons: Physical exam Intake Note: Patient is here today for a physical. 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 Required: No Road Maker: Not Required per policy Accompanied by: Self / Same As Patient Allergies sulfabenzamide Allergy (Intermediate, Verified 05/22/23 17:25) rash azithromycin Allergy (Mild, Verified 05/22/23 17:25) Unknown codeine Adverse Reaction (Intermediate, Verified 05/22/23 17:25) itching Medication List - Last Reconciled 05/22/23 by Alfonso Osuna MD cholecalciferol (vitamin D3) 50 mcg PO DAILY naproxen 500 mg PO BID PRN phytonadione (vit K1) (bulk) 100% (Vitamin K1) ea miscellaneous Tobacco use date assessed: 05/22/23 Dental Screening Dental Screen Date: 05/22/23 Did you have a dental visit in the last 12 months?: Yes Did you have a dental problem in the last 6 months where you did not have access to dental care?: No Was dental information given to patient?: Patient has dentist HPI Physical exam HPI Details Patient comes in today for her annual physical examination States that she feels okay She denies any headaches or dizziness Denies any chest pains, no SOB No nausea/vomiting, no abdominal pain No change in bowel habits noted She denies any acute urinary symptoms States that she is up-to-date with her annual gynecology exam and pap smear - was last seen in February 2023 and her next appt is in March 2024 Had her mammogram last done a few weeks ago in April 2023 Her colonoscopy was last done about 7 years ago when she was still residing in [place], [place] and she will be due for repeat in 10 years - ~ 2026 She also had her repeat BMD done last month and would like to know how her test came out [facility] Medical History Osteoporosis Vitamin D deficiency Overweight (BMI 25.0-29.9) Elevated high-density lipoprotein Trigger finger History of atypical skin mole Surgical History (Updated 05/22/23 @ 17:31 by Alfonso Osuna MD) Hx of colonoscopy History of dilation and curettage History of knee surgery Family History Father Skin cancer Prostate cancer Mother Lump in female breast Maternal Grandmother Ovarian cancer Other Substance abuse Social History Housing: Apartment Alcohol intake: never Patient Tobacco Use Status: Never used Tobacco e-Cigarette/Vaping Use: Never Used Second Hand Smoke Exposure: Yes Substance Use Type: Marijuana service: No Current occupational status: employed 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 1. Little interest or pleasure in doing things: not at all 2. Feeling down, depressed, or hopeless: not at all 3. Trouble falling or staying asleep, or sleeping too much: not at all 4. Feeling tired or having little energy: not at all 5. Poor appetite or overeating: not at all 6. Feeling bad about yourself - or that you are a failure or have let yourself or your family down: not at all 7. Trouble concentrating on things, such as reading the newspaper or watching television: not at all 8. Moving or speaking so slowly that other people could have noticed. Or the opposite - being so fidgety or restless that you have been moving around a lot more than usual: not at all 9. Thoughts that you would be better off or of hurting yourself in some way: not at all Total score: 0 Depression Screening Interpretation: Negative Depression Screening Done: Yes 06602 - PHQ-9 Billing: Yes Source: Developed by Drs. Ramon Bazan, Danielle Steele, Venkata Granados and colleagues, with an educational moon from [employer]. Thrive Questionnaire Date Thrive assessed: 05/22/23 I am a: Patient What is your living situation today?: I have a steady place to live Within the past 12 months, did the food you bought not last and you didn't have the money to get more?: Never true Within the past 12 months, did you worry whether your food would run out before you got money to buy more?: Never true Do you have trouble paying for medicines?: No Do you have trouble getting transportation to medical appointments?: No Do you have trouble paying your heating and electricity bill?: No Do you have trouble taking care of your child, family member or friend?: No Do you have trouble with day-to-day activities such as bathing, preparing meals, shopping, managing finances, etc.?: No Are you currently unemployed and looking for a job?: No Are you interested in more education?: No Please select the resources that you would like help with: None Currently or been in a relationship where the following occur: no concerns reported THRIVE Score: 0 AUDIT C Alcohol Use Questionnaire (AUDIT-C) 1. How often do you have a drink containing alcohol?: Never 3. How often do you have six or more drinks on one occasion?: Never Total Score: 0 Score Reviewed/Action Taken: Yes ROGER-7 AMB Questionnaire ROGER-7 Date ROGER - 7 assessed: 04/15/23 Source: Developed by Drs. Ramon Bazan, Danielle Steele, Venkata Granados and colleagues, with an educational moon from [employer]. Review of Systems Const Denies chills, Denies fatigue, Denies fever(s), Denies headache(s) and Denies malaise Eyes Denies blurry vision, Denies change in vision, Denies irritation and Denies itchy eyes ENT Denies dysphagia, Denies dizziness, Denies otalgia, Denies headache(s), Denies nasal congestion, Denies neck pain, Denies odynophagia, Denies sinus pain and Denies sore throat Card Denies chest pain, Denies rapid heart rate, Denies irregular heart rhythm, Denies palpitations and Denies dyspnea Resp Denies chest congestion, Denies cough, Denies dyspnea and Denies wheezing GI Denies abdominal pain, Denies bloating, Denies constipation, Denies dysphagia, Denies heartburn, Denies diarrhea, Denies nausea, Denies odynophagia and Denies vomiting Denies hematuria, Denies urinary frequency, Denies dysuria, Denies urinary incontinence and Denies urinary urgency Musc Details: (+) painful nodules/swelling at the base of her big toes on both feet Denies back pain, Denies arthralgias, Denies joint swelling, Denies muscle weakness and Denies neck pain Skin/Breast Denies breast pain, Denies breast mass, Denies change in pigmentation, Denies lesions, Denies rash and Denies unusual bruising Neuro Denies dizziness, Denies headache(s) and Denies paresthesias Psych Denies anxiety and Denies depression Endo Denies fatigue and Denies palpitations Shaw/Lymph Denies easy bruising Aller/Immun Denies itchy eyes and Denies wheezing Physical exam (Primary Care) Vital Signs: Last Vital Signs Pulse 57 05/22/23 17:01 BP 100/70 05/22/23 17:01 Pulse Ox 99 05/22/23 17:01 Oxygen Delivery Method Room Air 05/22/23 17:01 BMI result Body Mass Index 23.6 Tobacco/Smoking Status: Tobacco use Status Tobacco use date assessed 05/22/23 05/22/23 17:04 Patient Tobacco Use Status Never used Tobacco 05/22/23 17:04 e-Cigarette/Vaping Use Never Used 05/22/23 17:04 Depression Screening Interpretation: Negative Thrive Assessment: Date of Thrive Assessment Date Thrive assessed 04/15/23 05/22/23 17:04 Currently or been in a relationship where the following occur: no concerns reported Const General: no acute distress, alert and awake Orientation/consciousness: patient oriented x3 HENMT Head: Yes normocephalic and Yes atraumatic Ears: external ears normal, TM's normal bilaterally and EAC's normal General nose exam: No nasal discharge present Face and sinus: Yes normal facial exam and Yes sinuses nontender Teeth and gingiva: dentition normal Throat: Yes posterior oropharynx normal and Yes tonsils normal (no TP congestion) Eyes Eyelids: Yes eyelids normal Conjunctivae: conjunctivae normal Pupils: Equal, round and reactive pupils present EOM: EOMs intact bilaterally Neck Neck: Yes no lymphadenopathy and Yes supple Thyroid: Thyroid normal Resp Auscultation: clear to auscultation bilaterally, no rales and no wheezes Cardio Rate: regular rate Rhythm: regular rhythm Heart sounds: no murmurs GI Palpation (GI): Soft to palpation, nontender and No hepatosplenomegaly present Auscultation: normal bowel sounds General: Yes no CVA tenderness Back/Spine/Pelvis Back: no CVA tenderness Thoracic/Lumbar Spine: thoracic and lumbar spine normal to inspection Skin Lesions: no lesions Rashes: no rashes Neuro General: patient oriented x3, moves all extremities, no focal motor deficits and CN's II-XI intact bilaterally Cranial nerves: Yes Equal, round and reactive pupils present Cognition (Neuro): normal cognition Gait exam (Neuro): Normal gait present Extrem Other: (+) mild tenderness over the base of the right big toe, which appears prominent/enlarged; (+) similar prominence / enlargement noted over the base of the left big toe, with (+) small, spongy nodule or cyst-like lesion on the top General: Yes no clubbing, cyanosis or edema Assessment and Plan Assessment & Plan (1) Annual physical exam: Code(s): Z00.00 - Encounter for general adult medical examination without abnormal findings Plan: Check labs She is up-to-date with her annual pap smear and gynecology exam as well as her annual mammogram and colon cancer screening - will be due for repeat colonoscopy ~ 2026 (2) Osteoporosis: Code(s): M81.0 - Age-related osteoporosis without current pathological fracture Qualifiers: Osteoporosis type: age-related Presence of current pathological fracture: without current pathological fracture Qualified Code(s): M81.0 - Age- related osteoporosis without current pathological fracture Plan: Results of her repeat BMD done a few weeks ago reviewed and discussed with patient - advised that her BMD has improved slightly from previous, particularly in her left femur where her BMD has increased by 13.9% from her baseline and her T-score has improved from -2.8 to -2.1 Follow up with endocrinology as scheduled (3) Vitamin D deficiency: Code(s): E55.9 - Vitamin D deficiency, unspecified Plan: Continue Vitamin D3 2000 units QD Will recheck her Vitamin D level for follow up (4) Elevated LFTs: Code(s): R79.89 - Other specified abnormal findings of blood chemistry Plan: Her LFTs have improved and were back to normal on her labs done about a year ago - were most likely due to her weight (steatosis) Will recheck her LFTs and labs for follow up (5) Allergic rhinitis: Code(s): J30.9 - Allergic rhinitis, unspecified Qualifiers: Allergic rhinitis trigger: unspecified Allergic rhinitis seasonality: unspecified Qualified Code(s): J30.9 - Allergic rhinitis, unspecified Plan: Follow up with allergy and immunology as scheduled (6) Swelling of toe of both feet: Code(s): M79.89 - Other specified soft tissue disorders Plan: Have again advised patient that she most likely has bunions, and that the cyst or nodular lesion on the base of her left big toe feels like a small cutaneous cyst Her foot x-rays done recently both came back normal She was referred to podiatry for further evaluation and management and she is scheduled to see podiatry sometime in the next month or two Plan To return in 1 year for her next annual physical examination Orders: Orders UA CC w/rflx Micro + Cult Today R30.0 - Dysuria, Z00.00 - Encounter for general adult medical examination without abnormal findings Complete Blood Count Auto Diff Today D64.9 - Anemia, unspecified, Z00.00 - Encounter for general adult medical examination without abnormal findings Comprehensive [place]. Panel Fast Today E78.00 - Pure hypercholesterolemia, unspecified, Z00.00 - Encounter for general adult medical examination without abnormal findings Lipid Panel Today E78.00 - Pure hypercholesterolemia, unspecified, Z00.00 - Encounter for general adult medical examination without abnormal findings TSH reflex Free T4 Today E78.00 - Pure hypercholesterolemia, unspecified, Z00.00 - Encounter for general adult medical examination without abnormal findings Vitamin D 25-OH Total Today E55.9 - Vitamin D deficiency, unspecified, Z00.00 - Encounter for general adult medical examination without abnormal findings Coding Level of Care Code Est Pt Prev Care 40-64y([id number]) Diagnoses Annual physical exam Z00.00 Age-related osteoporosis without current pathological fracture M81.0 Osteoporosis type: age-related Presence of current pathological fracture: without current pathological fracture Vitamin D deficiency E55.9 Elevated LFTs R79.89 Allergic rhinitis, unspecified seasonality, unspecified trigger J30.9 Allergic rhinitis trigger: unspecified Allergic rhinitis seasonality: unspecified Swelling of toe of both feet M79.89
[2023-05-22 17:01] VITALS: BP 100/70; PULSE 57; O2SAT 99; BMI 23.6
== END 2023-05-22 17:33 | disposition home or self-care (01) ==
PROVIDERS: PCP Internal Medicine; Visit Provider Internal Medicine
DX: Z00.00 Encounter for general adult medical examination without abnormal findings (principal); M81.0 Age-related osteoporosis without current pathological fracture; E55.9 Vitamin D deficiency, unspecified; R79.89 Other specified abnormal findings of blood chemistry; J30.9 Allergic rhinitis, unspecified; M79.89 Other specified soft tissue disorders
CPT/HCPCS: 99396

== ENCOUNTER 2023-06-26 11:03 | Outpatient (REF) | payer OTHER, SELFPAY ==
[2023-06-26 13:02] LABS: MANUAL DIFF FLAG NO
[2023-06-26 13:03] LABS: Appearance Urine Clear; Color Urine Yellow; Glucose Urine UA Negative (Negative); Leukocyte Esterase Urine Trace (Negative); Nitrite Urine Negative (Negative); PH 5.5 (5.0-9.0); Specific Gravity - Urine 1.015 (1.005-1.025); UMIC TRIGGER UACC YES; Urine Blood Negative (Negative); Urine Ketones Negative (Negative); Urine Protein Negative (Neg-Trace)
[2023-06-26 13:05] LABS: Basophils Percent Auto 0.7 % (0-2); Eosinophils Absolute Auto 0.1 X10*3/uL (0.0-0.4); Eosinophils Percent Auto 2.6 % (0-4); Hematocrit 41.8 % (37.0-47.0); Hemoglobin 14.6 g/dl (12.0-16.0); Imm Gran Abs Auto 0.01 X10*3/uL (0.00-0.03); Imm Gran Pct Auto 0.2 % (0.0-0.4); Lymphocytes Absolute Auto 1.3 X10*3/uL (1.2-4.9); Lymphocytes Percent Auto 30.9 % (20-40); Mean Corpuscular HGB Conc 34.9 g/dl (31.0-35.0); Mean Corpuscular Hemoglobin 31.3 pg (27.0-33.0); Mean Corpuscular Volume 89.7 fL (80.0-98.0); Mean Platelet Volume 9.1 fL (9.4-12.3); Monocytes Absolute Auto 0.4 X10*3/uL (0.1-1.2); Monocytes Percent Auto 8.4 % (2-11); Neutrophils Absolute Auto 2.5 x10*3/uL (2.0-8.3); Neutrophils Percent Auto 57.2 % (45-73); Platelet Count 301 X10*3/uL (160-400); Red Blood Count 4.66 X10*6/uL (4.20-5.50); Red Cell Distribution Width 12.1 % (11.0-16.0); White Blood Count 4.3 X10*3/uL (4.8-10.8)
[2023-06-26 13:24] LABS: Bacteria Urine None Seen (None Seen); Hyaline Casts Urine 0-2 /LPF (0-2); RBC Urine 0-2 /HPF (0-2); Squamous Epithelial Cell Urine 0-2 /HPF (0-2); WBC Urine 0-5 /HPF (0-5)
[2023-06-26 13:45] LABS: Alanine Aminotransferase 13 U/L (0-31); Albumin Level 4.3 g/dL (3.5-5.0); Alkaline Phosphatase 70 U/L (39-117); Anion Gap 10 (12-20); Aspartate Amino Transferase 16 U/L (5-31); Bilirubin Total 0.6 mg/dL (0.0-1.0); Blood Urea Nitrogen 12 mg/dL (9-16); Calcium 9.4 mg/dL (8.4-10.2); Carbon Dioxide 24 mmol/L (22-29); Chloride 110 mmol/L (96-108); Cholesterol 169 mg/dL (<200); Estimated Glomerular Filt Rate > 60; Glucose Fasting 100 mg/dL (60-99); HDL Cholesterol 79 mg/dL (>40); LDL Cholesterol Calculated 82 mg/dL (<100); Potassium 4.2 mmol/L (3.3-5.1); Sodium 140 mmol/L (135-145); TSH reflex Free T4 0.95 uIU/mL (0.32-4.0); Total Protein 6.8 g/dL (6.5-8.0); Triglycerides 43 mg/dL (<150); Vitamin D 25-OH Total 116.9 ng/mL (>30)
== END 2023-06-26 11:04 | disposition home or self-care (01) ==
LOC: HO.10HDL 11:03
PROVIDERS: Visit Provider Internal Medicine
DX: Z00.00 Encounter for general adult medical examination without abnormal findings (principal); R30.0 Dysuria; E55.9 Vitamin D deficiency, unspecified; E78.00 Pure hypercholesterolemia, unspecified; D64.9 Anemia, unspecified
CPT/HCPCS: 36415; 80053; 80061; 81001; 81003; 82306; 84443; 85025

== ENCOUNTER 2023-07-21 16:16 | Outpatient (AMB) | payer OTHER, SELFPAY ==
[2023-07-21 16:17] VITALS: BP 108/64; PULSE 88; BMI 23.8
--- NOTE | 2023-07-21 16:17 | MHC.OFFVIS ---
Vital Signs 07/21/23 16:17 Height 5 ft 2.11 in Weight 130 lb 11.746 oz BMI 23.8 BP 108/64 Blood Pressure Location Lt brachial Position Sitting Pulse 88 Pulse Source Pulse Oximeter Intake Visit Reasons: f/u osteoporosis-confirmed Intake Note: Patient presents today for Osteoporosis follow up. Preparation Operator Required: No Accompanied by: Self / Same As Patient Allergies sulfabenzamide Allergy (Intermediate, Verified 07/21/23 16:21) rash azithromycin Allergy (Mild, Verified 07/21/23 16:21) Unknown codeine Adverse Reaction (Intermediate, Verified 07/21/23 16:21) itching HPI Comments Details: 58 YO Female with PMHx vitamin D deficency is seen in consultation at the request of PCP for Osteoporosis. First diagnosed in few yrs ago with osteopenia . Not Received treatment in the past. No history of pathologic fracture or ONJ. Has several servings of dietary calcium per day . Not Takes Calcium supplement . Takes 2000 IU of Vitamin D daily. Denies ever using PPI, anticoagulant, antiepileptic or glucocorticoid medication. Does weight bearing exercise 2-3 days per week in the form of weight bearing light wts . 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 Have hot flashes . No breast cancer in family Denies history of Kidney stones: Has family history of Osteoporosis or hip fracture in maternal grand mother . UTD on dental cleanings and sees dentist every 6 months. No planned upcoming dental work or extractions. DXA dated 04/19/21: FINDINGS: AP SPINE L1-L4: BMD 0.997 g/cm2, Z-score -0.6, T-score -1.5, osteopenia. LEFT FEMUR, NECK: BMD 0.643 g/cm2, Z-score -1.7, T-score -2.8, osteoporosis. LEFT FEMUR, TOTAL: BMD 0.765 g/cm2, Z-score -1.2, T-score -1.9, osteopenia. Labs: Secondary workup was negative. Saw Senior Internet Sales Consultant who did not want to start as to replacement. Repeat DEXA recently showed improvements in hip bone density in the low bone mass range [facility] Medical History Osteoporosis Vitamin D deficiency Overweight (BMI 25.0-29.9) Elevated high-density lipoprotein Trigger finger History of atypical skin mole Surgical History History of root canal procedure Hx of colonoscopy History of dilation and curettage History of knee surgery Family History Father Skin cancer Prostate cancer Mother Lump in female breast Maternal Grandmother Ovarian cancer Other Substance abuse Social History Housing: Apartment Alcohol intake: never Patient Tobacco Use Status: Never used Tobacco e-Cigarette/Vaping Use: Never Used Second Hand Smoke Exposure: Yes Substance Use Type: Marijuana service: No Current occupational status: employed 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 Gender identity: Female Cognitive needs: No Hearing needs: No Vision needs: Yes (glasses) Female Reproductive History Menstrual Age of Menarche: 11 Physical Exam Vital Signs: BMI result Body Mass Index 23.8 Assessment & Plan Assessment & Plan (1) Osteoporosis: Code(s): M81.0 - Age-related osteoporosis without current pathological fracture Category: Medical Qualifiers: Osteoporosis type: age-related Presence of current pathological fracture: without current pathological fracture Qualified Code(s): M81.0 - Age-related osteoporosis without current pathological fracture Plan: This is a 56-year-old white female with a history of osteoporosis and vitamin-D deficiency. Vitamin-D appears to be replete. Secondary workup is negative . DEXA recently improved to low bone mass in the hip The plan is to continue the calcium, vitamin-D and weight-bearing exercise. Would not start pharmacologic treatment. Will have patient return to see primary care provider who could repeat a DEXA bone density in about 2 years time. If patient progresses back and osteoporosis, consideration could be given to starting a bisphosphonate or sending the patient back to endocrinology Coding Level of Care Code Est Pt Level 3 (55095) Diagnoses Age-related osteoporosis without current pathological fracture M81.0 Osteoporosis type: age-related Presence of current pathological fracture: without current pathological fracture
== END 2023-07-21 16:33 | disposition home or self-care (01) ==
PROVIDERS: PCP Internal Medicine; Visit Provider Internal Medicine Endocrinology, Diabetes & Metabolism
DX: M81.0 Age-related osteoporosis without current pathological fracture (principal)
CPT/HCPCS: 99213

== ENCOUNTER → 2023-07-21 16:16 | Outpatient (BNVA) | payer OTHER, SELFPAY | PROVIDERS: PCP Internal Medicine; Visit Provider Internal Medicine Endocrinology, Diabetes & Metabolism | DX: M81.0 Age-related osteoporosis without current pathological fracture (principal) | CPT/HCPCS: 99212 ==

== ENCOUNTER 2024-03-31 13:21 | Outpatient (REF) | payer OTHER, SELFPAY ==
[2024-03-31 21:36] LABS: Influenza A PCR NEGATIVE (Negative); Influenza B PCR NEGATIVE (Negative); Resp Syncy Virus RNA Qual PCR POSITIVE (Negative); SARS COV2 PCR INHOUSE NEGATIVE (Negative)
== END 2024-03-31 13:22 | disposition home or self-care (01) ==
LOC: HO.LAB 13:21
PROVIDERS: Physician Assistant; PCP Internal Medicine
DX: J01.00 Acute maxillary sinusitis, unspecified (principal); R09.89 Other specified symptoms and signs involving the circulatory and respiratory systems
CPT/HCPCS: 0241U; 99212

== ENCOUNTER 2024-03-31 13:21 | Outpatient (AMB) | payer OTHER, SELFPAY ==
[2024-03-31 14:05] VITALS: BP 118/76; PULSE 67; TEMP 37.1; O2SAT 97; BMI 26.0
--- NOTE | 2024-03-31 14:05 | AM.OFFWIN_ITS ---
Intake Vital Signs 03/31/24 14:05 Height 5 ft 2 in Weight 142 lb BMI 26.0 BP 118/76 Blood Pressure Location Lt brachial Position Sitting Pulse 67 Pulse Source Pulse Oximeter Temp 98.7 F Temp Source Oral Pulse Oximetry (%) 97 Oxygen Delivery Method Room Air Intake Visit Reasons: EP-fever, cough, nasal dark yellow mucus Intake Note: Pt is here today for a walk in visit. Pt c/o fever, cough chest congestion, dark yellow mucus since Thursday. Patient Tobacco Use Status: Never used Tobacco Allergies sulfabenzamide Allergy (Intermediate, Verified 03/31/24 14:08) rash azithromycin Allergy (Mild, Verified 03/31/24 14:08) Unknown codeine Adverse Reaction (Intermediate, Verified 03/31/24 14:08) itching HPI HPI Comments History of Present Illness Details History - The patient is a 59-year-old female pr esenting with prolonged cough, nasal congestion, and low-grade fever. - Symptoms began five days ago, involvin g significant nasal congestion and a considerable amount of dark yellow mucus. - Patient reported a scratchy sore throa t along with a low-grade fever persisting for three days, which has started to resolve. - Associated symptoms include episodic s hortness of breath, wheezing mainly at night, and sinus pain. - No history of asthma or COPD; occasion al smoking noted but minimized; previous episodes of bronchitis and pneumonia disclosed. - Use of Sudafed has provided some relie f, accompanied by supportive care including increased fluid intake and rest. Physical Exam General: Cooperative, healthy appearing, comfortable and no acute distress Orientation/consciousness: Patient oriented x3 Limitations: No limitations Head: Normal to inspection Ears: Hearing grossly normal bilaterally, external ears normal, fluid in both ears Nose: Normal external nose present, Normal nares present, dark yellow mucus discharge present Face and sinus: Normal facial exam and Yes bilat maxillary sinuses tender Mouth: Normal oral and palatal mucosa present and moist mucous membranes Throat: Yes tonsils normal, Yes uvula midline. Posterior oropharynx erythema Eyes: Appearance normal, both eyes and all related structures Neck: Normal visual inspection Respiratory: Clear to auscultation bilaterally. Normal respiratory effort, able to speak in complete sentences, Actively coughing, no respiratory distress, not tachypneic, no tripod positioning and no use of accessory muscles Cardiovascular: Regular rate and rhythm. Normal S1 and S2 Skin: No rashes or lesions noted Neuro: Patient oriented x3 Extremities: Normal to inspection and Yes no clubbing, cyanosis or edema [facility] Medical History (Updated 03/31/24 @ 14:42 by Wanda Vo PA-C) Osteoporosis Vitamin D deficiency Overweight (BMI 25.0-29.9) Elevated high-density lipoprotein Trigger finger History of atypical skin mole Surgical History History of root canal procedure Hx of colonoscopy History of dilation and curettage History of knee surgery Family History Father Skin cancer Prostate cancer Mother Lump in female breast Maternal Grandmother Ovarian cancer Other Substance abuse Social History Housing: Apartment Alcohol intake: never Patient Tobacco Use Status: Never used Tobacco e-Cigarette/Vaping Use: Never Used Second Hand Smoke Exposure: Yes Substance Use Type: Marijuana service: No Current occupational status: employed 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 Gender identity: Female Cognitive needs: No Hearing needs: No Vision needs: Yes (glasses) Female Reproductive History Menstrual Age of Menarche: 11 Review of Systems Const All systems reviewed & are unremarkable except as noted in HPI and below Physical Exam Vital Signs: Last Vital Signs Temp 98.7 F 03/31/24 14:05 Pulse 67 03/31/24 14:05 BP 118/76 03/31/24 14:05 Pulse Ox 97 03/31/24 14:05 Oxygen Delivery Method Room Air 03/31/24 14:05 BMI result Body Mass Index 26.0 Assessment & Plan Assessment & Plan (1) Sinusitis, acute: Code(s): J01.90 - Acute sinusitis, unspecified Qualifiers: Sinusitis location: maxillary Recurrence: non-recurrent Qualified Code(s): J01.00 - Acute maxillary sinusitis, unspecified Plan: Based on the evaluation, the patient is likely experiencing viral sinusitis with potential viral bronchitis. Diagnostic tests for COVID-19, flu, and RSV will be performed. Treatment is geared toward symptom management with continued Sudafed and possibly introducing neti pot with distilled water and Flonase for nasal decongestion. Supportive care including fluid intake and adequate rest is emphasized. Benzonatate may be used to control night-time coughing. Antibiotics like Augmentin will only be considered if viral panel is negative and symptoms exacerbate, suggesting a bacterial component, we will call the pt in the morning with the results to discuss and decide. Results will be communicated via the patient portal, with decisions to be made upon next-day follow-up based on test outcomes and clinical progress. Patient was informed and verbally consented to the use of an ambient scribe for clinic note documentation during this visit Orders: Orders SARS-CoV2/FLU/RSV Today R09.89 - Other specified symptoms and signs involving the circulatory and respiratory systems Medications: New benzonatate 200 mg PO TID PRN 14 caps 0RF cough Coding Level of Care Code Est Pt Level 3 (07617) Diagnoses Acute non-recurrent maxillary sinusitis J01.00 Sinusitis location: maxillary Recurrence: non-recurrent
== END 2024-03-31 15:11 | disposition home or self-care (01) ==
PROVIDERS: PCP Internal Medicine; Visit Provider Physician Assistant
DX: J01.00 Acute maxillary sinusitis, unspecified (principal)

== ENCOUNTER 2024-04-20 13:17 | Outpatient (REF) | payer OTHER, SELFPAY ==
--- OUTSIDE RECORDS SUMMARY | 2024-04-20 15:25 | XMS_ITS | Clinical Summary ---
Author Organization 175 [facility] Address 175 [place] [address] Phone Care Team Providers Care Skin Washer Name Role Phone Alfonso Osuna MD Primary Care Provider [phone] Allergies Active Allergy Reactions Criticality Noted Date [...] AM EST Office Visit Orthopedic Surgery - [place] [address] [address] Medhat Camacho, DPM Hallux rigidus [...] AM EST Office Visit Orthopedic Surgery - [place] [address] [address] Medhat Camacho, DPM [address] [address] Health Maintenance Due Date Last Done Comments [...] ORDERABLES from Last 3 Months Care Teams Skin Washer Relationship Specialty Start Date End Date Alfonso Osuna MD [address] [place] [address] Dr [address] HITESH Rivas PCP - General 04/22/23
--- OUTSIDE RECORDS SUMMARY | 2024-04-20 15:25 | XMS_ITS | Encounter Summary ---
Author Organization [facility] Address [id number] [place] [phone] Care Team Providers Care Tax Collector Name Role Phone Alfonso Osuna MD Primary Care Provider [phone] Reason for Visit * Reason Comments Follow-up F/u great toe disord er Encounter Details Date Type Department Care Team (Late st Contact Info) Description 03/22/2024 10:00 AM EST Office Visit Orthopedic Surgery - [place] [address] [phone] Medhat Camacho DPM [address] [address] Hallux rigidus of left foot (Primary Dx); [...] protective sensation intact 10/10 with 5.07 semmes karlie bilaterally, vibratory sensation with tuning fork intact [...] medial eminence bilateral. IMAGING: Radiographs taken at [place] 04/20/2023 no acute fracture slight dorsal spurring [...] AM EST Office Visit Orthopedic Surgery - [place] [address] [phone] Medhat Camacho DPM [address] [address] documented as of this encounter Procedures Procedure [...] mg documented in this encounter Care Teams Tax Collector Relationship Specialty Start Date End Date Alfonso Osuna MD [address] [place] [address] [address] [place], [place] PCP - General 04/22/23 documented as of this encounter
[2024-05-04 12:52] LABS: HPV Genotype 16 Negative (Negative); HPV Genotype 18 Negative (Negative); HPV High Risk Negative (Negative)
== END 2024-04-20 13:18 | disposition home or self-care (01) ==
LOC: HO.LNP 13:17
PROVIDERS: PCP Internal Medicine; Visit Provider Advanced Practice Midwife
DX: Z01.419 Encounter for gynecological examination (general) (routine) without abnormal findings (principal); Z11.51 Encounter for screening for human papillomavirus (HPV)
CPT/HCPCS: 87626; 88175; 99396; 99459

== ENCOUNTER 2024-04-20 13:17 | Outpatient (AMB) | payer OTHER, SELFPAY ==
--- NOTE | 2024-04-20 13:23 | MHC.OFFVIS ---
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 She is doing well with no tractor trailer operator concerns. Currently not sexually active. Denies any vaginal dryness or irritation. STI testing offered; she declined. Attempting to eat a healthy diet with calcium and vitamin D and stays active with exercise. Last pap smear; 2019. Last mammogram; 2023. Colonoscopy is UTD. Denies any family history of breast or colon cancer. [facility] Medical History Osteoporosis Vitamin D deficiency Overweight (BMI 25.0-29.9) Elevated high-density lipoprotein Trigger finger History of atypical skin mole Surgical History History of root canal procedure Hx of colonoscopy History of dilation and curettage History of knee surgery Family History Father Skin cancer Prostate cancer Mother Lump in female breast Maternal Grandmother Ovarian cancer Other Substance abuse Social History Housing: Apartment Alcohol intake: never Patient Tobacco Use Status: Never used Tobacco e-Cigarette/Vaping Use: Never Used Second Hand Smoke Exposure: Yes Substance Use Type: Marijuana service: No Current occupational status: employed 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 Gender identity: Female Cognitive needs: No Hearing needs: No Vision needs: Yes (glasses) Female Reproductive History Menstrual Age of Menarche: 11 Menopause type: natural Total pregnancies: 2 Full term: 1 Number of Living Children: 1 Ab spontaneous: 1 Date of last pap smear: 03/02/20 (neg pap and hpv) Date of Mammogram: 05/01/23 (Birad 1) Date of last Bone Density Screenin05/01/23 Review of Systems Const All systems reviewed & are unremarkable except as noted in HPI and below Reports as per HPI Eyes Reports no additional complaints ENT Reports no additional complaints Card Reports no additional complaints Resp Reports no additional complaints GI Reports as per HPI and Reports no additional complaints Reports as per HPI Musc Reports no additional complaints Skin/Breast Reports as per HPI Neuro Reports no additional complaints Psych Reports no additional complaints Endo Reports no additional complaints Shaw/Lymph Reports no additional complaints Aller/Immun Reports no additional complaints Physical Exam Vital Signs: Last Vital Signs BP 110/70 04/20/24 13:25 BMI result Body Mass Index 26.3 Const General: cooperative, healthy appearing, no acute distress, well developed and alert Orientation/consciousness: patient oriented x3 HEENT Head: Yes normal to inspection Eyes General: appearance normal, both eyes and all related structures Neck Neck: Yes normal visual inspection Thyroid: Thyroid normal Chest Chest palpation & inspection: normal inspection of the chest and other (no puckering, dimpling, peau de orange, retraction, discharge, masses) Breast/axilla inspection: normal inspection of the breasts Breast/axilla palpation: normal palpation of the breasts Resp Effort & Inspection: normal respiratory effort GI Inspection: Yes normal to inspection Palpation (GI): Soft to palpation Rectal Exam - Female: deferred General: Yes bladder normal to palpation External Female Exam: normal external appearance and normal appearance of the urethra Speculum Exam - Vagina: normal palpation and vagina atrophic Speculum Exam - Cervix: normal appearance of the cervix and normal palpation Bimanual exam- vagina & uterus: normal bimanual exam, normal palpation, uterine size normal, bladder normal to palpation, normal palpation and non-tender Bimanual Exam- Adnexa, other: no masses Skin General skin exam: no rashes or lesions noted Rashes: no rashes Neuro General: patient oriented x3 Cognition (Neuro): normal cognition Extrem General: Yes normal to inspection Psych Attitude: cooperative Thought process: Normal thought process present Assessment & Plan Assessment & Plan (1) Encounter for well woman exam with routine gynecological exam: Code(s): Z01.419 - Encounter for gynecological examination (general) (routine) without abnormal findings Category: Medical Plan Discussed: Current recommendations for pap smears per ASCCP guidelines. Pap smear obtained. Breast awareness, periodic self breast exams and yearly mammogram. Maintain a healthy lifestyle, well balanced diet including Calcium 1,200 mg and Vitamin D 600 IU daily, and routine exercise. Use of condoms for STI prevention if indicated. Contact the office with any postmenopausal bleeding. Patient verbalizes understanding and agrees to the plan of care. She was given opportunity to ask questions and all questions were answered to the best of my ability. RTO in 1 year for annual tractor trailer operator exam. This note is constructed using voice recognition software. While every effort has been made to ensure accuracy, title one kindergarten teacher errors may have been included. Coding Level of Care Code Est Pt Prev Care 40-64y(35833) Diagnoses Encounter for well woman exam with routine gynecological exam Z01.419
[2024-04-20 13:25] VITALS: BP 110/70; BMI 26.3
--- OUTSIDE RECORDS SUMMARY | 2024-04-20 14:40 | XMS_ITS | Encounter Summary ---
Author Organization [facility] Address [id number] [place] [id number] Care Team Providers Care Mc Kay Stitcher Name Role Phone Alfonso Osuna MD Primary Care Provider [phone] Reason for Visit * Reason Comments Follow-up F/u great toe disord er Encounter Details Date Type Department Care Team (Late st Contact Info) Description 03/22/2024 10:00 AM EST Office Visit Orthopedic Surgery - [place] [address] [phone] Medhat Camacho DPM [address] [address] Hallux rigidus of left foot (Primary Dx); Hallux rigidus of right foot; Ganglion cyst of left foot Social History Tobacco Use Types Packs/Day Years Used Date Smoking Tobacco: Never Assessed Sex and Gender Information Value Date Recorded Sex Assigned at Not on file Gender Identity Not on file Sexual Orientation Not on file Job Start Date Occupation Industry Not on file Not on file Not on file documented as of this encounter Last Filed Vital Signs Vital Sign Reading Time Taken Comments Blood Pressure - - Pulse - - Temperature - - Respiratory Rate - - Oxygen Saturation - - Inhaled Oxygen Concentration - - Weight 60.3 kg (133 lb) 03/22/2024 10:08 AM EST Height 157.5 cm (5' 2.01 ) 03/22/2024 10:[address] Body Mass Index 24.32 03/22/2024 10:08 AM EST documented in this encounter Progress Notes * Medhat Camacho DPM - 03/22/2024 10:00 AM ESTAssociated Order(s): Injection tendon or ligament Post-Procedure Diagnose(s): Ganglion cyst of left foot S Patient does note some significant improvement in her pain discomfort 2-3 out of 10 on a visual analog scale states the swelling has improved she has been using Voltaren gel alternatively states thatoverall she is happy with the topical medications Patient presents today complaint of a new complaint of her left foot she is she is assisted to ground her last 2 to 3 months and call for an appointment states that she feels like it does not hurt her but is plugged out annoying and in the way of her activities ROS: GENERAL: Pt denies nausea, fever, vomiting, chills, or shortness of breath. Pt in NAD. CARDIOLOGY: pt denies chest pain, palpitations LUNGS: pt denies shortness of breath MUSCULOSKELETAL: See HPI, otherwise no joint pain or swelling, back pain, or muscle pain. SKIN: see HPI, otherwise no lesions, rash or itching NEURO: No persistent headache, weakness or numbness The remainder of the review of systems is noncontributory PAST MEDICAL HISTORY: There is no problem list on file for this patient. SOCIAL HISTORY: Social History Tobacco Use Smoking status: Not on file Smokeless tobacco: Not on file Substance Use Topics Alcohol use: Not on file History Never marked as reviewed. ACTIVE MEDICATIONS: Current Outpatient Medications Medication Sig Dispense Refill Diclofenac Sodium 1 % Gel Apply 4 g topically 2 times daily. 100 g 2 No current facility-administered medications for this visit. ALLERGIES: Azithromycin, Codeine, and Sulfabenzamide PHYSICAL EXAM: Height 5' 2 (1.575 m), weight 133 lb (60.3 kg). Estimated body mass index is 24.33 kg/m?? as calculated from the following: Height as of this encounter: 5' 2 (1.575 m). Weight as of this encounter: 133 lb (60.3 kg). PODIATRIC EXAMINATION: GENERAL: Patient appears well nourished, with NAD. VASCULAR: Dorsalis pedis pulses are 2/4 bilaterally and Posterior tibial pulses are 2/4 bilaterally. Capillary filling time within normal limits the digits. No pallor on elevation or rubor on dependency. Positive hair growth. No varicosities. Denies rest pain or claudication pain. NEUROLOGICAL: Sharp/dull sensation intact, protective sensation intact 10/10 with 5.07 semmes kralie bilaterally, vibratory sensation with tuning fork intact to the tibial tuberosity. ORTHOPEDIC: Good muscle strength 5/5 of all flexors and extensors. Dorsi flexion of ankle ,10 degrees, plantar flexion WNL. No muscle atrophy. Mobile lateral aspect of left foot overlying CC joint cyst formation consistent with ganglion cyst fluid-filled with aspiration ganglion cyst tissue clear viscous measuring 2 cm raised DERMATOLOGICAL:.No masses or skin lesions noted. Normal skin temperature, normal skin turgor. BIOMECHANICS: STJ ROM wnl, MTJ ROM wnl, 1st MPJ ROM limited joint range of motion crepitation and range of motion palpable dorsal X ptosis bilaterally with medial eminence bilateral. IMAGING: Radiographs taken at [place] 04/20/2023 no acute fracture slight dorsal spurring IMPRESSION: 1. Hallux rigidus of left foot 2. Hallux rigidus of right foot 3. Ganglion cyst of left foot PLAN: Pt was seen and examined, history reviewed. Surgical options were then discussed for hallux rigidus of both feet - Discussed in detail oral anti-inflammatory medications, resting icing stretching, prefabricated insoles versus custom insoles, steroid injection. - Stretching exercises reviewed in detail with patient - Instructed patient to rest and ice foot at the end of the day - Radiographs Reviewed plain radiographs reviewed patient to proceed with these radiographs agree with radiologist there is mild to no significant degenerative changes at this time on plain radiographs palpable dorsal extosis prescription given for: anti-inflammatory medication -recommendations given for: Orthotics and insoles New complaint ganglion cyst left foot was discussed and reviewed per patient request he was aspirated drained and an injection was given to help reabsorb sac follow-up in 1 month Injection of ganglion cyst following aspiration was performed after consent was obtained. Risks andbenefits discussed in detail with patient and include but are not limited to risk of infection riskof recurrence . Cyst was aspirated total of 3 cc removed followed by injection given to the ligament of half cc 1% lidocaine half cc of Kenalog 40 Injection tendon or ligament Indications: pain Details: 25 G needle Medications: 0.5 mL lidocaine (PF) 1 %; 20 mg triamcinolone acetonide 40 mg/mL Informed Consent: Site: Foot ligament tendon Medhat Camacho DPM documented in this encounter Plan of Treatment Upcoming Encounters Date Type Department Care Team (Late st Contact Info) Description 05/10/2024 9:45 AM EST Office Visit Orthopedic Surgery - [place] [address] [phone] Medhat Camacho DPM [address] [phone] documented as of this encounter Procedures Procedure Name Priority Date/Time Associated Diagnosis Comments INJECTION TENDON OR LIGAMENT Routine 03/22/2024 10:00 AM EST Ganglion cyst of left foot documented in this encounter Results * Injection tendon or ligament (03/22/2024 10:00 AM EST) Narrative Medhat Camacho DPM - 03/22/2024 10:00 AM EST Medhat Camacho DPM ? 03/22/2024 12:27 PM Injection tendon or ligament Indications: pain Details: 25 G needle Medications: 0.5 mL lidocaine (PF) 1 %; 20 mg triamcinolone acetonide 40 mg/mL Informed Consent: ??Site: ??Foot ligament tendon Medhat Camacho DPM IN CLINIC/BEDSIDE ORDERABLES documented in this encounter Visit Diagnoses Diagnosis Hallux rigidus of left foot- Primary Hallux rigidus of right foot Ganglion cyst of left foot documented in this encounter Administered Medications Inactive Administered Medications - up to 3 most recent administrations Medication Order MAR Action Action Date Dose Rate Site lidocaine (PF) (XYLOCAINE-MPF) 1 % injection 0.5 mL 0.5 mL, injection, Once PRN Procedure, Starting on Thu03/22/24 at 1000, For 1 dose Given 03/22/2024 10:00 AM EST 0.5 mL triamcinolone acetonide (KENALOG-40) 40 mg/mL injection 20 mg 20 mg, intra-articular, Once PRN Procedure, Starting on Thu03/22/24 at 1000, For 1 dose Given 03/22/2024 10:00 AM EST 20 mg documented in this encounter Care Teams Mc Kay Stitcher Relationship Specialty Start Date End Date Alfonso Osuna MD [address] [place] [address] [address] [place], [place] PCP - General 04/22/23 documented as of this encounter
--- OUTSIDE RECORDS SUMMARY | 2024-04-20 14:40 | XMS_ITS | Clinical Summary ---
Author Organization [address] [facility] Address [address] [place] [address] Phone Care Team Providers Care Matte Cutter Name Role Phone Alfonso Osuna MD Primary Care Provider [phone] Allergies Active Allergy Reactions Criticality Noted Date Comments Azithromycin 06/10/2023 Codeine 06/10/2023 Sulfabenzamide 06/10/2023 Medications Medication Sig Dispensed Refills Start Date End Date Status diclofenac (VOLTAREN) 1 % topical gel Apply 4 g topically. 06/10/2023 Active Hospital, Clinic, or Other Facility Administered Medication Ordered Dose Route Frequency Start Date End Date Status lidocaine (PF) (XYLOCAINE-MPF) 1 % injection 0.5 mLIndications:Gangli on cyst of left foot .5 mL inj Once PRN Procedure 03/22/2024 03/22/2024 Ended triamcinolone acetonide (KENALOG-40) 40 mg/mL injection 20 mgIndications:Gangli on cyst of left foot 20 mg IAtc Once PRN Procedure 03/22/2024 03/22/2024 Ended Encounters Date Type Department Care Team Description 03/22/2024 10:00 AM EST Office Visit Orthopedic Surgery - [place] [address] [phone] Medhat Camacho, DPM Hallux rigidus of left foot (Primary Dx); Hallux rigidus of right foot; Ganglion cyst of left foot from Last 3 Months Social History Tobacco Use Types Packs/Day Years Used Date Smoking Tobacco: Never Assessed Sex and Gender Information Value Date Recorded Sex Assigned at Not on file Gender Identity Not on file Sexual Orientation Not on file Job Start Date Occupation Industry Not on file Not on file Not on file Last Filed Vital Signs Vital Sign Reading Time Taken Comments Blood Pressure - - Pulse - - Temperature - - Respiratory Rate - - Oxygen Saturation - - Inhaled Oxygen Concentration - - Weight 60.3 kg (133 lb) 03/22/2024 10:08 AM EST Height 157.5 cm (5' 2.01 ) 03/22/2024 10:[address] Body Mass Index 24.32 03/22/2024 10:08 AM EST Plan of Treatment Upcoming Encounters Date Type Department Care Team (Late st Contact Info) Description 05/10/2024 9:45 AM EST Office Visit Orthopedic Surgery - [place] [address] [phone] Medhat Camacho, DPM [address] [address] Health Maintenance Due Date Last Done Comments Breast Cancer Screening 1965 DTaP,Tdap,and Td Vaccines (1 - Tdap) 01/25/1984 Hepatitis B Vaccines (1 of 3 - 19+ 3-dose series) 01/25/1984 Cervical Cancer Screening: P ap Smear 1986 Zoster Vaccines (1 of 2) 2015 Colorectal Cancer Screening: Colonoscopy 10/09/2023 Depression Screening 10/09/2023 HIV Screening 10/09/2023 Hepatitis C Screening 10/09/2023 Social Influencers of Health Screening 10/09/2023 COVID-19 Vaccine (4 - 2023-2 5 season) 2023 02/16/2021, 07/13/2020, 06/22/2020 Influenza Vaccine (#1) 2023 , 12/21/2019 RSV Immunization Patients 60 + Years Old (1 - 1-dose 75+ series) 01/25/2040 HIB Vaccines Aged Out No longer eligi ble based on patient's age to complete this topic HPV Vaccines Aged Out No longer eligi ble based on patient's age to complete this topic Hepatitis A Vaccines Aged Out No long er eligible based on patient's age to complete this topic IPV Vaccines Aged Out No longer eligi ble based on patient's age to complete this topic MMR Vaccines Aged Out No longer eligi ble based on patient's age to complete this topic Meningococcal ACWY Vaccine Aged Out N o longer eligible based on patient's age to complete this topic Pneumococcal Vaccine: Pediatrics (0 to 5 Years) and At-Risk Patients (6 to 64 Years) Aged Out No longer eligible b ased on patient's age to complete this topic RSV Immunization Patients Under 20 months Aged Out No longer eligible b ased on patient's age to complete this topic Varicella Vaccines Aged Out No longer eligible based on patient's age to complete this topic Procedures Procedure Name Priority Date/Time Associated Diagnosis Comments INJECTION TENDON OR LIGAMENT Routine 03/22/2024 10:00 AM EST Ganglion cyst of left foot from Last 3 Months Results * Injection tendon or ligament (03/22/2024 10:00 AM EST) Narrative Medhat Camacho DPM - 03/22/2024 10:00 AM EST Medhat Camacho DPM ? 03/22/2024 12:27 PM Injection tendon or ligament Indications: pain Details: 25 G needle Medications: 0.5 mL lidocaine (PF) 1 %; 20 mg triamcinolone acetonide 40 mg/mL Informed Consent: ??Site: ??Foot ligament tendon Medhat Camacho DPM IN CLINIC/BEDSIDE ORDERABLES from Last 3 Months Care Teams Matte Cutter Relationship Specialty Start Date End Date Alfonso Osuna MD [address] [place] [address] Dr [address] HITESH Rivas PCP - General 04/22/23
== END 2024-04-20 14:08 | disposition home or self-care (01) ==
LOC: HO.HWS 13:17
PROVIDERS: PCP Internal Medicine; Visit Provider Advanced Practice Midwife
DX: Z01.419 Encounter for gynecological examination (general) (routine) without abnormal findings (principal)
CPT/HCPCS: 99396; 99459

== ENCOUNTER 2024-05-27 10:34 | Outpatient (AMB) | payer OTHER, SELFPAY ==
--- NOTE | 2024-05-27 10:36 | MHC.PC.OV ---
Vital Signs 05/27/24 10:37 Height 5 ft 2 in Weight 149 lb 6.4 oz BMI 27.3 BP 114/64 Blood Pressure Location Lt brachial Position Sitting Pulse 62 Pulse Source Pulse Oximeter Temp 97.5 F Temp Source Temporal Artery Scan Pulse Oximetry (%) 97 Oxygen Delivery Method Room Air Intake Visit Reasons: Annual physical exam Geropsychologist Required: No Accompanied by: Self / Same As Patient Allergies sulfabenzamide Allergy (Intermediate, Verified 05/27/24 10:51) rash azithromycin Allergy (Mild, Verified 05/27/24 10:51) Unknown codeine Adverse Reaction (Intermediate, Verified 05/27/24 10:51) itching Medication List - Last Reconciled 05/27/24 by LITA Juarez ascorbic acid (vitamin C) mg PO cholecalciferol (vitamin D3) 50 mcg PO DAILY phytonadione (vit K1) (bulk) 100% (Vitamin K1) ea miscellaneous Tobacco use date assessed: 05/27/24 Dental Screening Dental Screen Date: 05/27/24 Did you have a dental visit in the last 12 months?: Yes Did you have a dental problem in the last 6 months where you did not have access to dental care?: No Was dental information given to patient?: Patient has dentist HPI Encounter for annual physical exam HPI Details Patient is here for annual physical Dentist: up to date Eye: up to date Snellen: Right: Left: Corrected vision: glasses STI screening: Colonoscopy: due 2026 mammogram: due-she as up coming appt Pap Smer: 04/2024 PHQ-9: Flu: decline COVID: x3 Tdap: up to date (2018) Diet: regular Exercise: dancing, walk and bike and lift weights 3 times a week [facility] Medical History Osteoporosis Vitamin D deficiency Overweight (BMI 25.0-29.9) Elevated high-density lipoprotein Trigger finger History of atypical skin mole Surgical History History of root canal procedure Hx of colonoscopy History of dilation and curettage History of knee surgery Family History Father Skin cancer Prostate cancer Mother Lump in female breast Maternal Grandmother Ovarian cancer Other Substance abuse Social History Housing: Apartment Alcohol intake: never Patient Tobacco Use Status: Never used Tobacco e-Cigarette/Vaping Use: Never Used Second Hand Smoke Exposure: Yes Substance Use Type: Marijuana service: No Current occupational status: employed 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 1. Little interest or pleasure in doing things: not at all 2. Feeling down, depressed, or hopeless: not at all 3. Trouble falling or staying asleep, or sleeping too much: not at all 4. Feeling tired or having little energy: not at all 5. Poor appetite or overeating: not at all 6. Feeling bad about yourself - or that you are a failure or have let yourself or your family down: not at all 7. Trouble concentrating on things, such as reading the newspaper or watching television: not at all 8. Moving or speaking so slowly that other people could have noticed. Or the opposite - being so fidgety or restless that you have been moving around a lot more than usual: not at all 9. Thoughts that you would be better off or of hurting yourself in some way: not at all Total score: 0 Depression Screening Interpretation: Negative Depression Screening Done: Yes 43883 - PHQ-9 Billing: Yes Source: Developed by Drs. Ramon Bazan, Danielle Steele, Venkata Granados and colleagues, with an educational moon from [employer]. Thrive Questionnaire Date Thrive assessed: 05/27/24 I am a: Patient What is your living situation today?: I have a steady place to live Within the past 12 months, did the food you bought not last and you didn't have the money to get more?: I choose not to answer this question Within the past 12 months, did you worry whether your food would run out before you got money to buy more?: Never true Do you have trouble paying for medicines?: No Do you have trouble getting transportation to medical appointments?: No Do you have trouble paying your heating and electricity bill?: No Do you have trouble taking care of your child, family member or friend?: No Do you have trouble with day-to-day activities such as bathing, preparing meals, shopping, managing finances, etc.?: No Are you currently unemployed and looking for a job?: I choose not to answer this question Are you interested in more education?: No Please select the resources that you would like help with: None Currently or been in a relationship where the following occur: I choose not to answer THRIVE Score: 0 AUDIT C Alcohol Use Questionnaire (AUDIT-C) 1. How often do you have a drink containing alcohol?: 2-4 times a month 2. How many drinks containing alcohol do you have on a typical day when you are drinking?: 1 or 2 3. How often do you have six or more drinks on one occasion?: Never Total Score: 2 ROGER-7 AMB Questionnaire ROGER-7 Date ROGER - 7 assessed: 05/27/24 Feeling nervous, anxious, or on edge: 0 = Not at all Not being able to stop or control worryin = Not at all Worrying too much about different things: 0 = Not at all Trouble relaxin = Not at all Being so restless that it is hard to sit still: 0 = Not at all Becoming easily annoyed or irritable: 0 = Not at all Feeling afraid as if something awful might happen: 0 = Not at all Total ROGER-7 score (0-4 normal; 5-9 mild; 10-14 moderate; 15-21 severe): 0 Source: Developed by Drs. Ramno Bazan, Danielle Steele, Venkata Granados and colleagues, with an educational moon from [employer]. ROGER-7 Assessment Billing ROGER-7 Assessment Tool: ROGER-7 Assessment 20433 Review of Systems Const Denies headache(s) Eyes Denies loss of vision ENT Denies vertigo, Denies dizziness, Denies headache(s) and Denies sore throat Card Denies chest pain, Denies leg edema and Denies lightheadedness Resp Denies cough, Denies hemoptysis and Denies wheezing GI Denies abdominal pain, Denies melena, Denies constipation, Denies diarrhea and Denies vomiting Denies urinary frequency, Denies dysuria and Denies urinary urgency Musc Denies arthralgias, Denies joint swelling, Denies numbness and Denies tingling Neuro Denies Abnormal speech present, Denies behavioral changes, Denies vertigo, Denies dizziness, Denies headache(s), Denies loss of vision, Denies memory loss, Denies numbness and Denies tingling Psych Denies anxiety, Denies behavioral changes, Denies depression, Denies memory loss and Denies panic attacks Shaw/Lymph Denies easy bleeding and Denies easy bruising Aller/Immun Denies wheezing Physical exam (Primary Care) Vital Signs: Last Vital Signs Temp 97.5 F 05/27/24 10:37 Pulse 62 05/27/24 10:37 BP 114/64 05/27/24 10:37 Pulse Ox 97 05/27/24 10:37 Oxygen Delivery Method Room Air 05/27/24 10:37 BMI result Body Mass Index 27.3 Tobacco/Smoking Status: Tobacco use Status Tobacco use date assessed 05/27/24 05/27/24 10:49 Patient Tobacco Use Status Never used Tobacco 05/27/24 10:49 e-Cigarette/Vaping Use Never Used 05/27/24 10:49 PHQ-9: PHQ-9 Score PHQ-9: Total score 0 05/27/24 10:56 Depression Screening Interpretation: Negative Thrive Assessment: Date of Thrive Assessment Date Thrive assessed 05/27/24 05/27/24 10:49 Currently or been in a relationship where the following occur: I choose not to answer Const General: healthy appearing, no acute distress, alert and awake Nutritional Appearance: well nourished Orientation/consciousness: oriented to person, oriented to place and oriented to time [facility] Ears: TM's normal bilaterally General nose exam: Normal nasal mucous membranes and turbinates present Eyes Conjunctivae: conjunctivae normal Sclerae: sclerae normal Pupils: Equal, round and reactive pupils present Neck Neck: Yes no lymphadenopathy and Yes no JVD Thyroid: Thyroid normal Carotids: no bruits Resp Effort & Inspection: normal respiratory effort and not tachypneic Auscultation: no crackles, no rales, no rhonchi and no wheezes Cardio Rate: regular rate Rhythm: regular rhythm Heart sounds: no murmurs and normal S1 and S2 GI Palpation (GI): Soft to palpation, nontender, no hepatomegaly and no splenomegaly Auscultation: normal bowel sounds Skin General skin exam: no rashes or lesions noted and dry skin Neuro General: oriented to person, oriented to place and oriented to time Cranial nerves: Yes Equal, round and reactive pupils present Speech: No Abnormal speech present Gait exam (Neuro): Normal gait present Motor exam (neuro): no tremor noted Extrem Right upper extremity: full ROM Left upper extremity: full ROM Right lower extremity: full ROM; no edema Left lower extremity: full ROM; no edema Psych Mental Status: mental status grossly normal Speech and movement: Normal speech and movement present Affect: normal affect Attitude: cooperative Thought process: Normal thought process present Coding Level of Care Code Est Pt Prev Care 40-64y(45200) Diagnoses Annual physical exam Z00.00 Vitamin D deficiency E55.9 Age-related osteoporosis without current pathological fracture M81.0 Osteoporosis type: age-related Presence of current pathological fracture: without current pathological fracture Allergic rhinitis, unspecified seasonality, unspecified trigger J30.9 Allergic rhinitis trigger: unspecified Allergic rhinitis seasonality: unspecified Elevated LFTs R79.89 Right knee pain, unspecified chronicity M25.561 Chronicity: unspecified Swelling of toe of both feet M79.89 Additional Codes ROGER-7 Assessment Billing - ROGER-7 Assessment Tool: ROGER-7 Assessment 66627 ([id number]) PHQ-9 - 37639 - PHQ-9 Billing: Yes ([id number]) Time Spent (min) 38 Assessment & Plan Assessment & Plan (1) Annual physical exam: Code(s): Z00.00 - Encounter for general adult medical examination without abnormal findings Category: Medical Plan: Recent guidelines were reviewed with the patient. Needs up-to-date it labs, we will order (2) Vitamin D deficiency: Code(s): E55.9 - Vitamin D deficiency, unspecified Category: Medical Plan: Continue cholecalciferol 50 mcg daily (3) Osteoporosis: Code(s): M81.0 - Age-related osteoporosis without current pathological fracture Category: Medical Qualifiers: Osteoporosis type: age-related Presence of current pathological fracture: without current pathological fracture Qualified Code(s): M81.0 - Age-related osteoporosis without current pathological fracture Plan: Bone scan done in 2023 showed improvement. She was seen by endocrine and a decision was made to treat. The patient to continue on taking vitamin D, calcium and weight bearing exercise. DEXA scan could be repeated next year. (4) Allergic rhinitis: Code(s): J30.9 - Allergic rhinitis, unspecified Category: Medical Qualifiers: Allergic rhinitis trigger: unspecified Allergic rhinitis seasonality: unspecified Qualified Code(s): J30.9 - Allergic rhinitis, unspecified Plan: Limit exposure to allergens Air purifiers and dust filters Air conditioner in house, especially where sleeping (5) Elevated LFTs: Code(s): R79.89 - Other specified abnormal findings of blood chemistry Category: Medical Plan: Last two previous LFTs have been normal. CMP ordered (6) Right knee pain: Code(s): M25.561 - Pain in right knee Category: Medical Qualifiers: Chronicity: unspecified Qualified Code(s): M25.561 - Pain in right knee Plan: stable: Denied pain (7) Swelling of toe of both feet: Code(s): M79.89 - Other specified soft tissue disorders Category: Medical Plan: stable: no swelling noted Orders: Orders Comprehensive [place]. Panel Fast 05/27/24 R79.89 - Other specified abnormal findings of blood chemistry, E55.9 - Vitamin D deficiency, unspecified, M81.0 - Age-related osteoporosis without current pathological fracture, E66.3 - Overweight, E78.89 - Other lipoprotein metabolism disorders Lipid Panel 05/27/24 R79.89 - Other specified abnormal findings of blood chemistry, E55.9 - Vitamin D deficiency, unspecified, M81.0 - Age-related osteoporosis without current pathological fracture, E66.3 - Overweight, E78.89 - Other lipoprotein metabolism disorders TSH reflex Free T4 05/27/24 R79.89 - Other specified abnormal findings of blood chemistry, E55.9 - Vitamin D deficiency, unspecified, M81.0 - Age-related osteoporosis without current pathological fracture, E66.3 - Overweight, E78.89 - Other lipoprotein metabolism disorders UA CC w/rflx Micro + Cult 05/27/24 R79.89 - Other specified abnormal findings of blood chemistry, E55.9 - Vitamin D deficiency, unspecified, M81.0 - Age-related osteoporosis without current pathological fracture, E66.3 - Overweight, E78.89 - Other lipoprotein metabolism disorders Vitamin D 25-OH Total 05/27/24 R79.89 - Other specified abnormal findings of blood chemistry, E55.9 - Vitamin D deficiency, unspecified, M81.0 - Age-related osteoporosis without current pathological fracture, E66.3 - Overweight, E78.89 - Other lipoprotein metabolism disorders XR knee RT 3V 05/27/24 M25.561 - Pain in right knee Complete Blood Count Auto Diff 05/27/24 R79.89 - Other specified abnormal findings of blood chemistry, E55.9 - Vitamin D deficiency, unspecified, M81.0 - Age-related osteoporosis without current pathological fracture, E66.3 - Overweight, E78.89 - Other lipoprotein metabolism disorders Uric Acid 05/27/24 M25.561 - Pain in right knee
[2024-05-27 10:37] VITALS: BP 114/64; PULSE 62; TEMP 36.4; O2SAT 97; BMI 27.3
--- OUTSIDE RECORDS SUMMARY | 2024-05-27 12:04 | XMS_ITS | CCD ---
Author Name Interface, [id number] lity Address [address] [place] [address] Organization [facility] Address [address] [place] [address] Care Team Providers Care Optical Goods Drill Operator Name Role Phone Jay Hoffman Unavailable Unavailable Reason for Visit Functional Status Date Name Score 09/29/2011 Karnofsky performance status 100 Medications Date Name Route Dose Frequency Instructions Start Date End Date Status 09/29/19 12 Multivitamins Oral Tablet PO 1.0 TABLET(S ) daily 2 active Social History Date Name Value Sex Female
--- OUTSIDE RECORDS SUMMARY | 2024-05-27 12:04 | XMS_ITS | Clinical Summary ---
Author Organization 175 [facility] Address 175 [place] [address] Phone Care Team Providers Care Machining Engineer Name Role Phone Alfonso Osuna MD Primary Care Provider [phone] Allergies Active Allergy Reactions Criticality Noted Date Comments Azithromycin 06/10/2023 Codeine 06/10/2023 Sulfabenzamide 06/10/2023 Medications diclofenac (VOLTAREN) 1 % topical gel Apply 4 g topically. 06/10/2023 Active Encounters Date Type Department Care Team Description 05/10/2024 9:45 AM EST Office Visit Orthopedic [facility] [address] [phone] Medhat Camacho DPM Ganglion cyst of left foot (Primary Dx); Hallux rigidus of right foot; Hallux rigidus of left foot; Dermatophytosis of nail 03/22/2024 10:00 AM EST Office Visit [place] [address] [phone] Medhat Camacho DPM Hallux rigidus of left foot (Primary Dx); Hallux rigidus of right foot; Ganglion cyst of left foot from Last 3 Months Social History Tobacco Use Types Packs/Day Years Used Date Smoking Tobacco: Never Assessed Comments Unknown Sex and Gender Information Value Date Recorded Sex Assigned at Not on file Legal Sex Female 11:03 AM EDT Gender Identity Not on file Sexual Orientation Not on file Last Filed Vital Signs Vital Sign Reading Time Taken Comments Blood Pressure - - Pulse - - Temperature - - Respiratory Rate - - Oxygen Saturation - - Inhaled Oxygen Concentration - - Weight 60.3 kg (133 lb) 05/10/2024 9:48 AM EST Height 157.5 cm (5' 2.01 ) 05/10/2024 9:48 AM ES T Body Mass Index 24.32 05/10/2024 9:48 AM EST Plan of Treatment Upcoming Encounters Date Type Department Care Team (Late st Contact Info) Description 10/18/2024 11:00 AM EDT Office Visit Orthopedic Surgery - [place] [address] [phone] Medhat Camacho, DPM [address] [address] Health Maintenance Due Date Last Done Comments Breast Cancer Screening 1965 DTaP,Tdap,and Td Vaccines (1 - Tdap) 01/25/1984 Hepatitis B Vaccines (1 of 3 - 19+ 3-dose series) 01/25/1984 Cervical Cancer Screening: P ap Smear 1986 Pneumococcal Vaccine: 50+ Years (1 of 1 - PCV) 2015 Zoster Vaccines (1 of 2) 2015 Colorectal [...] patient's age to complete this topic Meningococcal B Vacine Aged Out No lo nger eligible based on patient's age to complete [...] tendon or ligament (03/22/2024 10:00 AM EST) Medhat Aguiar DPM - 03/22/2024 10:00 AM EST Medhat Camacho DPM ? 03/22/2024 12:27 PM Injection tendon or ligament Indications: pain Details: 25 G needle Medications: 0.5 mL lidocaine (PF) 1 %; 20 mg triamcinolone acetonide 40 mg/mL Informed Consent: ??Site: ??Foot ligament tendon Medhat Camacho DPM IN CLINIC/BEDSIDE ORDERAB LES Final Result from Last 3 Months Insurance MEDICAID - [place] Care Teams Machining Engineer Relationship Specialty Start Date End Date Alfonso Osuna MD [address] [place] [address] [place] [address] [place] PCP - General 04/22/23
--- OUTSIDE RECORDS SUMMARY | 2024-05-27 12:04 | XMS_ITS | CCD ---
Author Name Interface, [id number] lity Address [address] [place] [address] Organization [facility] Address [address] [place] [address] Care Team Providers Care Volleyball Referee Name Role Phone Jay Hoffman Unavailable Unavailable Reason for Visit Functional Status Medications Social History
--- OUTSIDE RECORDS SUMMARY | 2024-05-27 12:04 | XMS_ITS | Encounter Summary ---
Author Organization [facility] Address [address] [place] [phone] Care Team Providers Care Bar Roller Name Role Phone Alfonso Osuna MD Primary Care Provider [phone] Reason for Visit * Reason Comments Follow-up Left foot cyst Encounter Details Date Type Department Care Team ([facility] st Contact Info) Description 05/10/2024 9:45 AM EST Office Visit Orthopedic Surgery - [place] [address] [phone] Medhat Camacho DPM [address] [address] Ganglion cyst of left foot (Primary Dx); Hallux rigidus of right foot; Hallux rigidus of left foot; Dermatophytosis of nail Social History Tobacco Use Types Packs/Day Years Used Date Smoking Tobacco: Never Assessed Comments Unknown Sex and Gender Information Value Date Recorded Sex Assigned at Not on file Legal Sex Female 11:03 AM EDT Gender Identity Not on file Sexual Orientation Not on file documented as of this [...] Mass Index 24.32 05/10/2024 9:48 AM EST documented in this encounter Progress Notes * Medhat Camacho DPM - 05/10/2024 9:45 AM EST S Patient reports that her pain is gone significantly away after the steroid injection states her left foot cyst is significantly proved not completely resolved shows that she is again is a pain in both great toes she also notes that her nails become discolored and flaking she was understanding of fungus denies other pedal complaints ROS: GENERAL: Pt denies nausea, fever, vomiting, [...] degrees, plantar flexion WNL. No muscle atrophy. Resolved soft tissue cyst CC joint cyst formation DERMATOLOGICAL:.No masses or skin lesions noted. Normal skin temperature, normal skin turgor. Yellow discoloration of both great toenails with subungual debris and distal 5% BIOMECHANICS: STJ ROM wnl, MTJ ROM wnl, 1st MPJ ROM limited joint range of motion crepitation and range of motion palpable dorsal X ptosis bilaterally with medial eminence bilateral. IMAGING: Radiographs taken at [place] 04/20/2023 no acute fracture slight dorsal spurring IMPRESSION: 1. Ganglion cyst of left foot 2. Hallux rigidus of right foot 3. Hallux rigidus of left foot 4. Dermatophytosis of nail PLAN: Pt was seen and examined, history [...] time on plain radiographs palpable dorsal extosis Treatment options for dermatophytosis of nails discussed and reviewed home remedies white vinegar soaks were recommended to apply twice daily for 15 minutes Follow-up in 3 months Medhat Camacho DPM documented in this encounter Plan of Treatment Upcoming Encounters Date Type Department Care Team (Late st Contact Info) Description 10/18/2024 11:00 AM EDT Office Visit Orthopedic Surgery - [place] [address] [phone] Medhat Camacho DPM [address] [address] documented as of this encounter Visit Diagnoses Diagnosis Ganglion cyst of left foot- Primary Hallux rigidus of right foot Hallux rigidus of left foot Dermatophytosis of nail documented in this encounter Care Teams Bar Roller Relationship Specialty Start Date End Date Alfonso Osuna MD [address] [place] [address] [address] [place], [place] PCP - General 04/22/23 documented as of this encounter
== END 2024-05-27 11:23 | disposition home or self-care (01) ==
PROVIDERS: PCP Internal Medicine
DX: Z00.00 Encounter for general adult medical examination without abnormal findings (principal); E55.9 Vitamin D deficiency, unspecified; M81.0 Age-related osteoporosis without current pathological fracture; J30.9 Allergic rhinitis, unspecified; R79.89 Other specified abnormal findings of blood chemistry; M25.561 Pain in right knee; M79.89 Other specified soft tissue disorders

== ENCOUNTER → 2024-05-27 10:34 | Outpatient (BNVA) | payer OTHER, SELFPAY | PROVIDERS: PCP Internal Medicine | DX: Z00.00 Encounter for general adult medical examination without abnormal findings (principal); E55.9 Vitamin D deficiency, unspecified; M81.0 Age-related osteoporosis without current pathological fracture; J30.9 Allergic rhinitis, unspecified; R79.89 Other specified abnormal findings of blood chemistry; M25.561 Pain in right knee; M79.89 Other specified soft tissue disorders | CPT/HCPCS: 96127; 99396 ==

== ENCOUNTER 2024-09-12 10:34 | Outpatient (REF) | payer OTHER, SELFPAY ==
--- OUTSIDE RECORDS SUMMARY | 2024-09-12 11:20 | XMS_ITS | CCD ---
Author Name Interface, [id number] lity Address [address] [facility] [address] [place] [id number] Organization [facility] Address [address] [facility] [address] [place] [address] Care Team Providers Care Roll On Man Name Role Phone Yasmin DOVE, Jay Crespo Unavailab le Allergies and Adverse Reactions Reason for Visit Functional Status Medications Problems Social History
[2024-09-12 13:24] LABS: MANUAL DIFF FLAG NO
[2024-09-12 13:32] LABS: Basophils Percent Auto 0.3 % (0-2); Eosinophils Absolute Auto 0.1 X10*3/uL (0.0-0.4); Eosinophils Percent Auto 1.4 % (0-4); Hematocrit 43.6 % (37.0-47.0); Hemoglobin 15.1 g/dl (12.0-16.0); Imm Gran Abs Auto 0.01 X10*3/uL (0.00-0.03); Imm Gran Pct Auto 0.2 % (0.0-0.4); Lymphocytes Absolute Auto 0.8 X10*3/uL (1.2-4.9); Lymphocytes Percent Auto 12.8 % (20-40); Mean Corpuscular HGB Conc 34.6 g/dl (31.0-35.0); Mean Corpuscular Hemoglobin 32.1 pg (27.0-33.0); Mean Corpuscular Volume 92.8 fL (80.0-98.0); Mean Platelet Volume 9.5 fL (9.4-12.3); Monocytes Absolute Auto 0.4 X10*3/uL (0.1-1.2); Monocytes Percent Auto 6.6 % (2-11); Neutrophils Absolute Auto 4.6 x10*3/uL (2.0-8.3); Neutrophils Percent Auto 78.7 % (45-73); Platelet Count 301 X10*3/uL (160-400); Red Cell Distribution Width 12.1 % (11.0-16.0); White Blood Count 5.9 X10*3/uL (4.8-10.8)
[2024-09-12 13:39] LABS: Appearance Urine Clear; Color Urine Yellow; Glucose Urine UA Negative (Negative); Leukocyte Esterase Urine Negative (Negative); Nitrite Urine Negative (Negative); Urine Blood Negative (Negative); Urine Ketones Trace mg/dL (Negative); Urine Protein Negative (Neg-Trace)
[2024-09-12 13:47] LABS: Alanine Aminotransferase 27 U/L (0-31); Albumin Level 4.8 g/dL (3.5-5.0); Alkaline Phosphatase 85 U/L (39-117); Anion Gap 14 (12-20); Aspartate Amino Transferase 27 U/L (5-31); Bilirubin Total 0.5 mg/dL (0.0-1.0); Blood Urea Nitrogen 15 mg/dL (9-16); Calcium 9.5 mg/dL (8.4-10.2); Carbon Dioxide 24 mmol/L (22-29); Chloride 106 mmol/L (96-108); Cholesterol 191 mg/dL (<200); Estimated Glomerular Filt Rate 59; Glucose Fasting 101 mg/dL (60-99); HDL Cholesterol 91 mg/dL (>40); LDL Cholesterol Calculated 87 mg/dL (<100); Sodium 140 mmol/L (135-145); Total Protein 7.2 g/dL (6.5-8.0); Triglycerides 65 mg/dL (<150); Uric Acid 6.5 mg/dL (2.4-5.7)
[2024-09-12 14:20] LABS: TSH reflex Free T4 1.67 uIU/mL (0.32-4.0); Vitamin D 25-OH Total 89.1 ng/mL (>30)
== END 2024-09-12 10:35 | disposition home or self-care (01) ==
LOC: HO.10HDL 10:34
DX: R79.89 Other specified abnormal findings of blood chemistry (principal); E55.9 Vitamin D deficiency, unspecified; M81.0 Age-related osteoporosis without current pathological fracture; E66.3 Overweight; E78.89 Other lipoprotein metabolism disorders; M25.561 Pain in right knee
CPT/HCPCS: 36415; 80053; 80061; 81003; 82306; 84443; 84550; 85025

== ENCOUNTER 2024-09-12 10:55 | Outpatient (REF) | payer OTHER, SELFPAY ==
--- NOTE | ~2024-09-12 | XR_ITS ---
EXAMINATION: XR KNEE, RIGHT CLINICAL INFORMATION: M25.561 - Pain in right knee COMPARISON: None available. TECHNIQUE: AP oblique, lateral and sunrise views of the right knee. FINDINGS: Joint space narrowing involving mostly the medial compartment with small marginal osteophyte formation and medial femoral condyle. No acute cortical disruption or malalignment. No suprapatellar bursa joint effusion. No lytic or blastic lesions. XR/XR knee RT 3V IMPRESSION: Mild medial compartmental arthrosis. Electronically signed by: Néstor Webster MD 09/12/2024 11:26 AM EDT
== END 2024-09-12 10:56 | disposition home or self-care (01) ==
LOC: HO.XRAY 10:55
PROVIDERS: PCP Internal Medicine
DX: M25.561 Pain in right knee (principal)
CPT/HCPCS: 73562

== ENCOUNTER → 2024-09-12 11:01 | Outpatient (BNV) | payer OTHER, SELFPAY | PROVIDERS: PCP Internal Medicine; Visit Provider Radiology Diagnostic Radiology | DX: M25.561 Pain in right knee (principal) | CPT/HCPCS: 73562 ==

== ENCOUNTER 2025-03-08 08:56 | Outpatient (AMB) | payer OTHER, SELFPAY ==
--- OUTSIDE RECORDS SUMMARY | 2025-03-08 09:02 | XMS_ITS | CCD ---
Author Name Interface, [id number] lity Address [address] [place] [address] Organization [facility] Address [address] [place] [address] Care Team Providers Care Rehabilitation Teacher Name Role Phone Yasmin DOVE, Jay Farmer le Allergies and Adverse Reactions Medication/Group Name Reaction Severity Date tramadol HCl 09/29/2011 Cephalosporins 09/29/2011 hydrocodone bitartrate/acetaminophen 09/29/2011 Opioids - Morphine Analogues 09/29/2011 Opioids - Morphine Analogues 09/29/2011 Opioids - Morphine Analogues 09/29/2011 acetaminophen 09/29/2011 codeine 09/29/2011 Reason for Visit Functional Status Date Name/Question Score/Answer 09/29/2011 Karnofsky performance status 100 Medications Date Name Route Dose Frequency Instructions Start Date End Date Status Fill Status Indication 01/02 Multivitam ins Oral Tablet PO 1.0 TABLE T(S) daily 2011 active Problems Diagnosis Status Date of Diagnosis Resolution Date Leukopenia (disorder) Active 09/02/2011 Social History Date Name Value 12/31/2017 Sex Female
--- OUTSIDE RECORDS SUMMARY | 2025-03-08 09:02 | XMS_ITS | Clinical Summary ---
Author Organization [address] [facility] Address [address] [place] [address] Phone Care Team Providers Care Filling Station Attendant Name Role Phone Alfonso Osuna MD Primary Care Provider [phone] Allergies Active Allergy Reactions Criticality Noted Date Comments Azithromycin 06/10/2023 Codeine 06/10/2023 Sulfabenzamide 06/10/2023 Medications diclofenac (VOLTAREN) 1 % topical gel Apply 4 g topically. 06/10/2023 Active Social History Tobacco Use Types Packs/Day Years [...] 05/10/2024 9:48 AM EST Plan of Treatment Health Maintenance Due Date Last Done Comments Breast Cancer Screening 1965 Colorectal Cancer Screening: Colonoscopy 1965 DTaP,Tdap,and Td Vaccines (1 - Tdap) 01/25/1984 Cervical Cancer Screening: P ap Smear 1986 Pneumococcal Vaccine: 50+ Years (1 of 1 - PCV) 2015 Zoster Vaccines (1 of 2) 2015 HIV Screening 10/09/2023 Hepatitis C Screening 10/09/2023 Social Influencers of Health Screening 10/09/2023 Depression Screening 03/16/2024 COVID-19 Vaccine (4 - 2024-2 6 season) 2024 02/16/2021, 07/13/2020, 06/22/2020 Influenza Vaccine (#1) 2024 , 12/21/2019 RSV Immunization Adult Patients (1 - 1-dose 75+ series) 01/25/2040 HIB Vaccines Aged Out No longer eligi ble based on patient's age to complete this topic HPV Vaccines Aged Out No longer eligi ble based on patient's age to complete this topic Hepatitis A Vaccines Aged Out No long er eligible based on patient's age to complete this topic Hepatitis B Vaccines Aged Out No long er eligible [...] age to complete this topic Meningococcal B Vaccine Aged Out No l onger eligible based on patient's age to complete this topic RSV Immunization Patients Under 20 months Aged Out No longer eligible b ased on patient's age to complete this topic Varicella Vaccines Aged Out No longer eligible based on patient's age to complete this topic Insurance MEDICAID - [place] [facility] Care Teams Filling Station Attendant Relationship Specialty Start Date End Date Alfonso Osuna MD [address] [place] [address] [address] [place] PCP - General 04/22/23
--- NOTE | 2025-03-08 09:05 | MHC.OFFVIS ---
Intake Visit Reasons: Right knee pain Intake Note: Kacie is a 60 year old female who presents with complaints of progressively worsening right knee pain. The patient states that she did undergo right knee arthroscopic surgery in [place], [place] several years ago. She got fairly good relief from that surgery initially. 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 Since that time her pain and mechanical symptoms have gotten worse. She has failed the last 6 weeks of conservative treatment which has included Tylenol, anti-inflammatory medicines, physical therapy exercises and a home exercise program. The patient states that her pain worsened after she fell in November. know: NO HX: Yes Allergies sulfabenzamide Allergy (Intermediate, Verified 05/27/24 10:51) rash azithromycin Allergy (Mild, Verified 05/27/24 10:51) Unknown codeine Adverse Reaction (Intermediate, Verified 05/27/24 10:51) itching Medication List - Last Reconciled 03/08/25 by Teja Killian MD ascorbic acid (vitamin C) mg PO cholecalciferol (vitamin D3) 50 mcg PO DAILY phytonadione (vit K1) (bulk) 100% (Vitamin K1) ea miscellaneous PFSH Medical History Osteoporosis Vitamin D deficiency Overweight (BMI 25.0-29.9) Elevated high-density lipoprotein Trigger finger History of atypical skin mole Surgical History History of root canal procedure Hx of colonoscopy History of dilation and curettage History of knee surgery Family History Father Skin cancer Prostate cancer Mother Lump in female breast Maternal Grandmother Ovarian cancer Other Substance abuse Social History Housing: Apartment Alcohol intake: never Patient Tobacco Use Status: Never used Tobacco e-Cigarette/Vaping Use: Never Used Second Hand Smoke Exposure: Yes Substance Use Type: Marijuana service: No Current occupational status: employed 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 Gender identity: Female Cognitive needs: No Hearing needs: No Vision needs: Yes (glasses) Female Reproductive History Menstrual Age of Menarche: 11 Physical Exam Extrem Other: Right knee examination shows that the surgical incisions are well healed, no erythema, minimal crepitus with range of motion, tenderness along her medial joint line, positive Noah's test, no instability Results Reviewed Results Reviewed: Standing full weight-bearing x-rays of the patient's right knee show mild diffuse joint space narrowing, no acute bony abnormalities Assessment & Plan Assessment & Plan (1) Tear of medial meniscus of right knee: Code(s): S83.241A - Other tear of medial meniscus, current injury, right knee, initial encounter Category: Medical (2) Right knee pain: Code(s): M25.561 - Pain in right knee Category: Medical Qualifiers: Chronicity: unspecified Qualified Code(s): M25.561 - Pain in right knee Plan Ms. Neves presents with recurrent right knee pain and mechanical symptoms most likely due to a recurrent medial meniscus tear. Thus, I will send the patient for an MRI of her right knee for further evaluation. I will see her back once the MRI is completed to discuss the findings and treatment options. Feel free to call me at any time should questions regarding her orthopedic management arise. Thank you very much for asking me to see this very friendly patient. I spent 22 minutes in reviewing the patient's records and imaging studies, seeing the patient and documenting in the medical record. Orders: Orders MR knee RT wo con 03/10/25 S83.241A - Other tear of medial meniscus, current injury, right knee, initial encounter Coding Level of Care Code New Pt Level 3 (95415) Add On Problem Visit Only Diagnoses Tear of medial meniscus of right knee S83.241A Right knee pain, unspecified chronicity M25.561 Chronicity: unspecified
== END 2025-03-08 09:19 | disposition home or self-care (01) ==
LOC: HO.HOS 08:57
PROVIDERS: PCP Internal Medicine; Visit Provider Orthopaedic Surgery
DX: S83.241A Other tear of medial meniscus, current injury, right knee, initial encounter (principal); M25.561 Pain in right knee
CPT/HCPCS: 99203

== ENCOUNTER → 2025-03-08 08:56 | Outpatient (BNVA) | payer OTHER, SELFPAY | PROVIDERS: PCP Internal Medicine; Visit Provider Orthopaedic Surgery | DX: M25.561 Pain in right knee (principal) | CPT/HCPCS: 99202 ==